=== PATIENT | female | born 1955 | race Caucasian/White ===

== ENCOUNTER 2020-08-28 16:23 | Outpatient (REF) | payer MEDICARE, OTHER, SELFPAY ==
--- NOTE | 2020-08-28 16:29 | US_ITS ---
EXAMINATION: ULTRASOUND EXTREMITY NONVASCULAR. CLINICAL INFORMATION: Left knee effusion. COMPARISON: None TECHNIQUE: Limited imaging through the posterior fossa left knee was performed. FINDINGS: There is a small left Schulte's cyst measuring 4.7 x 1.1 x 2.2 cm. No additional soft tissue masses seen. US/US extremity nonvascular IMPRESSION: Small Schulte's cyst left popliteal fossa to
== END 2020-08-28 16:24 | disposition home or self-care (01) ==
LOC: HO.US 16:23
PROVIDERS: PCP Internal Medicine; Visit Provider Internal Medicine
DX: M25.462 Effusion, left knee (principal)
CPT/HCPCS: 76882

== ENCOUNTER 2020-09-22 11:11 | Outpatient (REF) | payer MEDICARE, OTHER, SELFPAY ==
--- NOTE | 2020-09-22 11:14 | XR_ITS ---
EXAMINATION: KNEE X-RAY CLINICAL INFORMATION: Synovial cyst popliteal space COMPARISON: None TECHNIQUE: Standing AP view of both knees and lateral and sunrise view of the left knee FINDINGS: Left knee: Bone alignment is normal. No fracture or dislocation is seen. There is mild medial femoral tibial joint space narrowing. There are small osteophytes at the patellofemoral joint. There is no joint effusion. Standing AP view of the right knee demonstrates mild medial femoral tibial joint space narrowing. XR/XR knee standing BI IMPRESSION: Left knee: Mild degenerative changes. No joint effusion seen.
--- NOTE | 2020-09-22 11:14 | XR_ITS ---
EXAMINATION: KNEE X-RAY CLINICAL INFORMATION: Synovial cyst popliteal space COMPARISON: None TECHNIQUE: Standing AP view of both knees and lateral and sunrise view of the left knee FINDINGS: Left knee: Bone alignment is normal. No fracture or dislocation is seen. There is mild medial femoral tibial joint space narrowing. There are small osteophytes at the patellofemoral joint. There is no joint effusion. Standing AP view of the right knee demonstrates mild medial femoral tibial joint space narrowing. XR/XR knee LT 2V IMPRESSION: Left knee: Mild degenerative changes. No joint effusion seen.
== END 2020-09-22 11:12 | disposition home or self-care (01) ==
LOC: HO.HOSX 11:11
PROVIDERS: Visit Provider Orthopaedic Surgery
DX: M71.20 Synovial cyst of popliteal space [Baker], unspecified knee (principal)
CPT/HCPCS: 73560; 73565; 99202

== ENCOUNTER 2020-10-01 08:06 | Outpatient (REF) | payer MEDICARE, OTHER, SELFPAY ==
[2020-10-01 09:35] LABS: Alanine Aminotransferase 11 U/L (0-31); Anion Gap 12 (12-20); Aspartate Amino Transferase 17 U/L (5-31); Blood Urea Nitrogen 18 mg/dL (9-16); Calcium 9.1 mg/dL (8.4-10.2); Carbon Dioxide 30 mmol/L (22-29); Chloride 101 mmol/L (96-108); Cholesterol 193 mg/dL; Estimated Glomerular Filt Rate > 60; Glucose Fasting 84 mg/dL (60-99); HDL Cholesterol 94 mg/dL; LDL Cholesterol Calculated 92 mg/dl; Potassium 4.1 mmol/l (3.3-5.1); Sodium 139 mmol/L (135-145); Triglycerides 39 mg/dL
[2020-10-01 09:49] LABS: TSH reflex Free T4 1.98 mIU/mL (0.32-4.0); Vitamin D 25-OH Total 64.5 ng/mL (>30)
== END 2020-10-01 08:07 | disposition home or self-care (01) ==
LOC: HO.LAB 08:06
PROVIDERS: PCP Internal Medicine; Visit Provider Internal Medicine
DX: K58.0 Irritable bowel syndrome with diarrhea (principal); I10 Essential (primary) hypertension; Z78.0 Asymptomatic menopausal state; Z00.01 Encounter for general adult medical examination with abnormal findings
CPT/HCPCS: 80048; 80061; 82306; 84443; 84450; 84460

== ENCOUNTER → 2021-04-20 12:08 | Outpatient (BNVA) | payer MEDICARE, OTHER, SELFPAY | PROVIDERS: PCP Internal Medicine; Visit Provider Orthopaedic Surgery | DX: M25.561 Pain in right knee (principal) | CPT/HCPCS: 99212 ==

== ENCOUNTER 2021-04-22 10:29 | Outpatient (REF) | payer MEDICARE, OTHER, SELFPAY | END 2021-04-22 10:30 | disposition home or self-care (01) | LOC: HO.LNP 10:29 | PROVIDERS: Visit Provider Family Medicine | DX: N39.0 Urinary tract infection, site not specified (principal) | CPT/HCPCS: 87086; 87088; 87186 ==

== ENCOUNTER 2021-05-28 13:48 | Outpatient (REF) | payer MEDICARE, OTHER, SELFPAY ==
--- NOTE | ~2021-05-28 | MM_ITS ---
EXAMINATION: MM SCREENING DIGITAL BREAST TOMOSYNTHESIS, BILATERAL CLINICAL INFORMATION: Screening. Asymptomatic. The lifetime risk of breast cancer based on the Tyrer-Cuzick Model is 6%. COMPARISON: Mammography: 04/30/2020, 08/22/2017, 08/17/2016 TECHNIQUE: Digital breast tomosynthesis is performed in both the craniocaudal and mediolateral oblique views along with computer-aided detection (CAD). Synthesized 2D images are generated from the tomosynthesis. Additional left CC view is provided. FINDINGS: There are scattered areas of fibroglandular density (ACR BI-RADS breast composition Category b). There are no significant masses, abnormal calcifications, or other abnormalities. There is small dermal lesion overlying the outer left breast. Low left axillary tail node is stable. The axilla are unremarkable. MM/MM tomosynthesis screening BI IMPRESSION: There are no significant changes from prior study. ASSESSMENT: BI-RADS 2: Benign RECOMMENDATION: Routine annual mammography screening. This patient's information was entered into a reminder system with a target due date for their next mammogram.
== END 2021-05-28 13:49 | disposition home or self-care (01) ==
LOC: HO.MAMMO 13:48
PROVIDERS: PCP Internal Medicine; Visit Provider Internal Medicine
DX: Z12.31 Encounter for screening mammogram for malignant neoplasm of breast (principal)
CPT/HCPCS: 77063; 77067

== ENCOUNTER → 2021-06-19 11:26 | Outpatient (BNVA) | payer MEDICARE, OTHER, SELFPAY | PROVIDERS: PCP Internal Medicine; Visit Provider Orthopaedic Surgery | DX: M25.462 Effusion, left knee (principal) | CPT/HCPCS: 20610; 99212; J1100 ==

== ENCOUNTER 2021-09-23 07:41 | Outpatient (REF) | payer MEDICARE, OTHER, SELFPAY ==
[2021-09-23 07:52] LABS: MANUAL DIFF FLAG NO
[2021-09-23 08:16] LABS: Basophils Percent Auto 0.5 % (0-2); Eosinophils Absolute Auto 0.5 X10*3/uL (0.0-0.4); Eosinophils Percent Auto 11.2 % (0-4); Hematocrit 41.2 % (37.0-47.0); Hemoglobin 13.1 g/dl (12.0-16.0); Imm Gran Abs Auto 0.01 X10*3/uL (0.00-0.03); Imm Gran Pct Auto 0.2 % (0.0-0.4); Lymphocytes Absolute Auto 1.4 X10*3/uL (1.2-4.9); Lymphocytes Percent Auto 33.3 % (20-40); Mean Corpuscular HGB Conc 31.8 g/dl (31.0-35.0); Mean Corpuscular Hemoglobin 28.4 pg (27.0-33.0); Mean Corpuscular Volume 89.4 fL (80.0-98.0); Mean Platelet Volume 8.8 fL (9.4-12.3); Monocytes Absolute Auto 0.4 X10*3/uL (0.1-1.2); Monocytes Percent Auto 9.2 % (2-11); Neutrophils Absolute Auto 1.9 x10*3/uL (2.0-8.3); Neutrophils Percent Auto 45.6 % (45-73); Platelet Count 177 X10*3/uL (160-400); Red Blood Count 4.61 X10*6/uL (4.20-5.50); White Blood Count 4.1 X10*3/uL (4.8-10.8)
[2021-09-23 08:47] LABS: Alanine Aminotransferase 14 U/L (0-31); Anion Gap 13 (12-20); Aspartate Amino Transferase 19 U/L (5-31); Blood Urea Nitrogen 15 mg/dL (9-16); Calcium 9.5 mg/dL (8.4-10.2); Carbon Dioxide 27 mmol/L (22-29); Chloride 106 mmol/L (96-108); Cholesterol 190 mg/dL; Estimated Glomerular Filt Rate > 60; Glucose Fasting 90 mg/dL (60-99); HDL Cholesterol 77 mg/dL; LDL Cholesterol Calculated 102 mg/dl; Potassium 4.5 mmol/L (3.3-5.1); Sodium 141 mmol/L (135-145); Triglycerides 59 mg/dL
[2021-09-23 09:10] LABS: Vitamin D 25-OH Total 77.1 ng/mL (>30)
== END 2021-09-23 07:42 | disposition home or self-care (01) ==
LOC: HO.LAB 07:41
PROVIDERS: PCP Internal Medicine; Visit Provider Internal Medicine
DX: Z00.00 Encounter for general adult medical examination without abnormal findings (principal); I10 Essential (primary) hypertension; N32.81 Overactive bladder; D12.6 Benign neoplasm of colon, unspecified; J45.20 Mild intermittent asthma, uncomplicated; K58.0 Irritable bowel syndrome with diarrhea; Z78.0 Asymptomatic menopausal state
CPT/HCPCS: 36415; 80048; 80061; 82306; 84450; 84460; 85025

== ENCOUNTER → 2022-03-08 12:22 | Outpatient (BNVA) | payer MEDICARE, OTHER, SELFPAY | PROVIDERS: PCP Internal Medicine; Visit Provider Orthopaedic Surgery | DX: M17.12 Unilateral primary osteoarthritis, left knee (principal); M25.462 Effusion, left knee; M21.6X2 Other acquired deformities of left foot; M76.822 Posterior tibial tendinitis, left leg | CPT/HCPCS: 99212 ==

== ENCOUNTER 2022-05-14 10:00 | Outpatient (RCR) | payer MEDICARE, OTHER, SELFPAY ==
--- NOTE | 2022-04-07 16:11 | MHC.PT.EP ---
[facility] [place] Office [place] Office [place] Office [address] Magdalena Rosario [address] [phone] F: [phone] F: [phone] F: [phone] F: [phone] Physical Therapy Plan of Care Date of Evaluation: Date of Surgery: NA Diagnosis: L KNEE AND FOOT PAIN Assessment: Pt IS 66YO F REFERRED TO PT FROM DR GONZALEZ WITH L KNEE PAIN, PES PLANUS L ANKLE WITH HX OF R HIP PAIN (PT AT [facility] ABOUT 2 YRS AGO). Pt LIVES ACTIVE LIFESTYLE AND REPORTS KNEE PAIN IS AFFECTING ABLILITY TO PARTICIPATE IN THESE ACTIVITIES. PRESENTS TO PT WITH GOOD OVERALL TRUNK AND LE FLEXIBILITY, WITH SOME DECREASED L QUAD ENDURANCE NOTED WITH SLR, PATFEM SXS, AND PELVIC ASYMM WITH PES PLANUS L (HAS ORTHOTIC APPT ON TUESDAY). SHOULD BENEFIT FROM PT TO ADDRESS THESE ISSUES Frequency and Duration: The patient will be seen 2X/WK X 6 WKS Short Term Goals: 1. INCREASED AWARENESS KNEE CARE/POSTURE /BODY MECH 2. Pt TO WEAR ORTHOTICS/LIFT WITH RELIEF IF INDICATED Detention Goals: 1. IMPROVED LEFI (51/80 AT SOC) 2. I HEP WITH DC EX PLAN 3. DECREASED L KNEE PAIN AT LEAST 50% WITH ADLS Treatment Plan: Modalities to reduce pain, spasms and effusion. Manual therapy to restore motion and function. Therapeutic exercise to improve strength and flexibility. Neuromuscular re-education for posture and balance. Therapeutic activities to return to functional activities of daily living. Electronically signed by: RYAN BRITO PT Please sign and return to therapist. Thank you for your referral.
== END 2022-07-13 14:33 | disposition home or self-care (01) ==
LOC: HO.PTWFD 10:00
PROVIDERS: PCP Internal Medicine; Visit Provider Orthopaedic Surgery
DX: M17.12 Unilateral primary osteoarthritis, left knee (principal); M21.6X2 Other acquired deformities of left foot
CPT/HCPCS: 97110; 97140; 97162; 97530

== ENCOUNTER 2022-06-08 09:48 | Outpatient (REF) | payer MEDICARE, OTHER, SELFPAY ==
--- NOTE | ~2022-06-08 | MM_ITS ---
EXAMINATION: MM SCREENING DIGITAL BREAST TOMOSYNTHESIS, BILATERAL CLINICAL INFORMATION: Screening. Asymptomatic. The lifetime risk of breast cancer based on the Tyrer-Cuzick Model is 6%. COMPARISON: Mammography: 05/28/2021, 04/30/2020, 08/22/2017 TECHNIQUE: Digital breast tomosynthesis is performed in both the craniocaudal and mediolateral oblique views along with computer-aided detection (CAD). Synthesized 2D images are generated from the tomosynthesis. FINDINGS: There are scattered areas of fibroglandular density (ACR BI-RADS breast composition Category b). There are no significant masses, abnormal calcifications, or other abnormalities. Incidental dermal lesion is again seen overlying the mid upper outer left breast. The axilla are unremarkable. There are no significant changes from prior studies. MM/MM tomosynthesis screening BI IMPRESSION: No mammographic evidence of malignancy. ASSESSMENT: BI-RADS 2: Benign RECOMMENDATION: Routine annual mammography screening. This patient's information was entered into a reminder system with a target due date for their next mammogram.
== END 2022-06-08 09:49 | disposition home or self-care (01) ==
LOC: HO.MAMMO 09:48
PROVIDERS: PCP Internal Medicine; Visit Provider Internal Medicine
DX: Z12.31 Encounter for screening mammogram for malignant neoplasm of breast (principal)
CPT/HCPCS: 77063; 77067

== ENCOUNTER 2022-10-26 07:00 | Outpatient (REF) | payer MEDICARE, OTHER, SELFPAY ==
[2022-10-26 12:52] LABS: Cholesterol 208 mg/dL; Glucose Fasting 88 mg/dL (60-99); HDL Cholesterol 91 mg/dL; LDL Cholesterol Calculated 104 mg/dl; Triglycerides 67 mg/dL; Vitamin D 25-OH Total 68.9 ng/mL (>30)
== END 2022-10-26 07:01 | disposition home or self-care (01) ==
LOC: HO.WFDLDS 07:00
PROVIDERS: Visit Provider Internal Medicine
DX: Z13.220 Encounter for screening for lipoid disorders (principal); Z13.1 Encounter for screening for diabetes mellitus; N95.9 Unspecified menopausal and perimenopausal disorder
CPT/HCPCS: 36415; 80061; 82306; 82947

== ENCOUNTER 2023-05-12 08:00 | Outpatient (RCR) | payer MEDICARE, OTHER, SELFPAY ==
--- NOTE | 2023-04-28 10:25 | MHC.PT.EP ---
[facility] [place] Office [place] Office [place] Office [address] Magdalena Rosario [address] [phone] F: [phone] F: [phone] F: [phone] F: [phone] Physical Therapy Plan of Care Date of Evaluation: Date of Surgery: Diagnosis: Strain of muscle, fascia, tendon of left hip, initial encounter, S76.912A . referred by walk-in office Dr. Sands 04/26/23. 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 Sands) for treatment of L HS strain following incident which occurred on 04/12/23 when [place] (L LE lurched forward in effort to save herself from falling when tripping over a root while hiking). Pt report history of past PT at [facility] for L knee several devine ago which has doing well however since trauma has been noticing some mild anterior knee pain. Pt initially paused from exercise, reports limited relief with meloxicam (expressed greater relief with Aleve). Pt was educated regarding goals of recovery, findings of evaluation, and HEP program/ MHP/self massage/taping education for self-care. Pt exhibits decreased tolerance for end range lumbar trunk flexion (pain site ischial tuberosity), decreased end range knee flexion ROM/ (painful prone knee flexion with MMT), and decreased sitting tolerance. Pt is TTP over site of origin of ischial tuberosity, proximal HS musculature, and lateral HS insertion. Pt was intiated in findings of initial evaluation educated guided/educated to refrain from intensive stretching. Pt advised to perform low load gentle stretch to tolerance. Pt issued written HEP sheets to include: LBTR, piriformis (opposite knee L >R sholulder), 90/90 hamstring, avoidance end range forcing HS but gentle HS stretch within painfree limits, education to refrain from prolonged sitting, avoidance of biking at this stage as it will likely flare sx, encouragement for gentle low impact walking on flat terrrain, education to pause participation in line-dancing due to likely flare of sx. Post intial evaluation pt was trialed with gentle IASTM/STM to HS and was educated in self taping for support (application from distal>proxmial HS with three I strips. Pt was educated re: goals of application, removal, and indications for use. Pt to be seen 2x/week x 4-6 weeks. Thank you for this referral. Frequency and Duration: The patient will be seen 2x/week x 4-6 weeks Short Term Goals: 1. Reduce pain in L HS 2. Initiate HEP. 3. Express improved tolerance for symmetrical sitting position. 4. Improve HS length to resemble uninvolved side. 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 Resume functional mobility MOD I. 2. Resume walking>hiking routine. 3. Resume biking MOD I. 4. Resume yoga/exercises classes MOD I, good self care. 5. Strength L HS 5/5 LE. 6. Demonstrate functional squat with symmetry sx <2/10 L LE. 7. L LE AROM hip/knee to resemble R LE. Treatment Plan: Modalities to reduce pain, spasms and effusion. Manual therapy to restore motion and function. Therapeutic exercise to improve strength and flexibility. Neuromuscular re-education for posture and balance. Therapeutic activities to return to functional activities of daily living. Electronically signed by: Mary Alford, PT, DPT Please sign and return to therapist. Thank you for your referral.
--- NOTE | 2023-05-12 08:05 | MHC.PT.EP ---
[facility] [place] Office [place] Office [place] Office [address] Magdalena Rosario [address] [phone] F: [phone] F: [phone] F: [phone] F: [phone] Physical Therapy Plan of Care Date of Evaluation: Date of Surgery: Diagnosis: Strain of muscle, fascia, tendon of left hip, initial encounter, S76.912A . referred by walk-in office Dr. Sands 04/26/23. 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 Sands) for treatment of L HS strain following incident which occurred on 04/12/23 when [place] (L LE lurched forward in effort to save herself from falling when tripping over a root while hiking). Pt report history of past PT at [facility] for L knee several devine ago which has doing well however since trauma has been noticing some mild anterior knee pain. Pt initially paused from exercise, reports limited relief with meloxicam (expressed greater relief with Aleve). Pt was educated regarding goals of recovery, findings of evaluation, and HEP program/ MHP/self massage/taping education for self-care. Pt exhibits decreased tolerance for end range lumbar trunk flexion (pain site ischial tuberosity), decreased end range knee flexion ROM/ (painful prone knee flexion with MMT), and decreased sitting tolerance. Pt is TTP over site of origin of ischial tuberosity, proximal HS musculature, and lateral HS insertion. Pt was intiated in findings of initial evaluation educated guided/educated to refrain from intensive stretching. Pt advised to perform low load gentle stretch to tolerance. Pt issued written HEP sheets to include: LBTR, piriformis (opposite knee L >R sholulder), 90/90 hamstring, avoidance end range forcing HS but gentle HS stretch within painfree limits, education to refrain from prolonged sitting, avoidance of biking at this stage as it will likely flare sx, encouragement for gentle low impact walking on flat terrrain, education to pause participation in line-dancing due to likely flare of sx. Post intial evaluation pt was trialed with gentle IASTM/STM to HS and was educated in self taping for support (application from distal>proxmial HS with three I strips. Pt was educated re: goals of application, removal, and indications for use. Pt to be seen 2x/week x 4-6 weeks. Thank you for this referral. Frequency and Duration: The patient will be seen 2x/week x 4-6 weeks Short Term Goals: 1. Reduce pain in L HS 2. Initiate HEP. 3. Express improved tolerance for symmetrical sitting position. 4. Improve HS length to resemble uninvolved side. 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 Resume functional mobility MOD I. 2. Resume walking>hiking routine. 3. Resume biking MOD I. 4. Resume yoga/exercises classes MOD I, good self care. 5. Strength L HS 5/5 LE. 6. Demonstrate functional squat with symmetry sx <2/10 L LE. 7. L LE AROM hip/knee to resemble R LE. Treatment Plan: Modalities to reduce pain, spasms and effusion. Manual therapy to restore motion and function. Therapeutic exercise to improve strength and flexibility. Neuromuscular re-education for posture and balance. Therapeutic activities to return to functional activities of daily living. Electronically signed by: Mary Alford, PT, DPT Please sign and return to therapist. Thank you for your referral.
--- NOTE | 2023-05-12 08:16 | MHC.PT.OD ---
[facility] [place] Office [place] Office [place] Office [address] Magdalena Rosario [address] [phone] F: [phone] F: [phone] F: [phone] F: [phone] Physical Therapy Daily Note Diagnosis: Strain of muscle, fascia, tendon of left hip, initial encounter, S76.912A . referred by walk-in office Dr. Sands 04/26/23. Date of Surgery: Date of Evaluation: 04/28/23 Date of Treatment: 05/12/23 Treatments to Date: Cancellations to Date: No Shows to Date: Authorized Visits: 4 Insurance End Date: Precautions/ Contraindications:hx osteopenia Subjective: I called for a refill on the medication and the doctor told me he wanted to see me. Im going to go in today. The pain with sitting is still very intense. Pain Score and Location: Objective Flowsheet: Tests & Measures see eval Exercises Prone for MHP to L HS while prone x 5-10 minutes to increase tissue extensibility. in order to improve tissue extensibility, educated can do at home for self care with proper layering 10-15 minutes, prn several times daily with education for self care. LBTR x 4R x 20 sec hold, pelvic tilt x 4 sets 5-10 reps, piriformis stretch for L side x 4R x 20 sec hold, 90/90 HS stretch reviewed x 4R, Review of standing adductor stretch x 20 sec hold x 4R, GENTLE HS STRETCH reviewed x 4R x 20 sec hold IASTM/STM to L HS followed by taping<>support to HS musculature. ROCKTAPE four I strips applied distally>proximally L LE in effort to provide tissue support and reduce pain. Pt educated re: goals of ROCKTAPE application, indications for use, goals of ROCKTAPE application, education to remove tape slowly from skin with avoidance of ripping it off (educated alternative option of to using a wet washcloth to remove tape). Educated to remove from skin in 24-48 hours, earlier if itchy/irritating or worsening of sx. Skin intact pre application. No bruising. Skin prep pre taping completed. Modalities Continuous US 1.2 hull cm2 x 8 minutes 1 MHZ in effort to increase tissue extensibility and reduce pain, applied to proximal HS on the L LE while prone. Skin intact pre/post application. Pt expressing gentle warmth during US treatment. Assessment: 05/12/23: Pt expressing intolerance for sitting, ongoing sx site of ischial tuberosity/proximal attachment. Pt signs and sx consistent with a HS strain. Pt able to ambulate, negotiate stairs MOD I however bending over for tasks such as gardening and sitting continue to bother her. Pt reports she has ran out of meloxicam, plan is to go to walk in office after PT session this date to have update assessment. ? Benefit in imaging due to ongoing sx DOI 04/12/23.. Concern for potential avulsion fracture vs severe sprain proximal HS on L LE. Please advise. Pt encouraged to refrain from incline, hilly terrain, hiking or biking at this time. Pt encouraged to perform low impact activity within her tolerance. Pt expressing ongoing intolerance for sitting, has resumed gentle walking program on flat terrain 1- 1.5. Denies issue with stairs, but has pain with sitting. TTP ischial tuberosity consistent with HS strain PT Plan: 2x/week x 4-6 weeks Short Term Goals: 1. Reduce pain in L HS 2. Initiate HEP. 3. Express improved tolerance for symmetrical sitting position. 4. Improve HS length to resemble uninvolved side. 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 Resume functional mobility MOD I. 2. Resume walking>hiking routine. 3. Resume biking MOD I. 4. Resume yoga/exercises classes MOD I, good self care. 5. Strength L HS 5/5 LE. 6. Demonstrate functional squat with symmetry sx <2/10 L LE. 7. L LE AROM hip/knee to resemble R LE. Electronically signed by: Mary Alford, PT, DPT
== END 2023-10-18 10:52 | disposition home or self-care (01) ==
LOC: HO.PTWFD 08:00
PROVIDERS: PCP Internal Medicine; Visit Provider Internal Medicine
DX: S76.012D Strain of muscle, fascia and tendon of left hip, subsequent encounter (principal); S76.912D Strain of unspecified muscles, fascia and tendons at thigh level, left thigh, subsequent encounter
CPT/HCPCS: 97035; 97110; 97140; 97161

== ENCOUNTER 2023-05-13 09:07 | Outpatient (AMB) | payer MEDICARE, OTHER, SELFPAY ==
--- NOTE | 2023-05-13 09:21 | MHC.OFFWIV ---
Intake Vital Signs 05/13/23 09:29 BP 112/74 Blood Pressure Location Rt brachial Position Sitting Pulse 84 Pulse Source Pulse Oximeter Pulse Oximetry (%) 96 Oxygen Delivery Method Room Air Intake Visit Reasons: EST/follow up left leg and hip Intake Note: Patient here to follow up on her left leg pain. She was advised to come be seen again so that she can get a refill on meloxicam. Patient Tobacco Use Status: Never used Tobacco Allergies Sulfa (Sulfonamide Antibiotics) Allergy (Unknown, Verified 05/13/23 10:13) rash Medication List - Last Reconciled 05/13/23 by Trent Sands MD calcium carbonate 600 mg PO DAILY cetirizine (Zyrtec) 5 mg PO DAILY PRN cholecalciferol (vitamin D3) 50 mcg PO DAILY lactobacillus combination no.9 (Adult 50 Plus Probiotic) 4,000 mmu cells PO DAILY meloxicam 15 mg PO DAILY HPI EST/follow up left leg and hip HPI Details 67-year-old female presents to the office for a follow-up visit. Patient was seen for hip strain and started on anti-inflammatories and physical therapy. Continues to have discomfort in the upper and of the inner thigh on the left leg. Patient is able to walk and climb stairs. COUNTS INCLUDE 234 BEDS AT THE [facility] Medical History (Updated 04/29/23 @ 02:34 by Dai Cobb MD) Schulte's cyst of knee Chronic constipation Irritable bowel syndrome with diarrhea Menopause Mild intermittent asthma without complication Need for 23-polyvalent pneumococcal polysaccharide vaccine Osteopenia of multiple sites Overactive bladder Personal history of COVID-19 Popliteal bursitis of left knee Toenail deformity Tubular adenoma of colon Surgical History History of eye surgery Hx of colonoscopy Family History Father Lymphoma Mother Lung cancer Brother No problems noted. Maternal Grandfather No problems noted. Maternal Grandmother No problems noted. Paternal Grandfather No problems noted. Paternal Grandmother No problems noted. 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 Pain is limited to a small area at the insertion of the adductor muscles. Assessment & Plan Assessment & Plan (1) Strain of left hip and thigh: Code(s): S76.012A - Strain of muscle, fascia and tendon of left hip, initial encounter; S76.912A - Strain of unspecified muscles, fascia and tendons at thigh level, left thigh, initial encounter Plan: Symptoms have improved but not completely resolved. Meloxicam for another 2 weeks prescribed. Coding Level of Care Code Est Pt Level 3 (54292) Diagnoses Strain of left hip and thigh S76.012A; S76.912A
[2023-05-13 09:29] VITALS: BP 112/74; PULSE 84; O2SAT 96
== END 2023-05-13 10:27 | disposition home or self-care (01) ==
PROVIDERS: PCP Internal Medicine; Visit Provider Internal Medicine
DX: S76.012A Strain of muscle, fascia and tendon of left hip, initial encounter (principal); S76.912A Strain of unspecified muscles, fascia and tendons at thigh level, left thigh, initial encounter
CPT/HCPCS: 99213

== ENCOUNTER 2023-06-07 12:31 | Outpatient (AMB) | payer MEDICARE, OTHER, SELFPAY ==
--- NOTE | 2023-06-07 12:34 | A.OFFVIS_ITS ---
Intake Vital Signs 06/07/23 12:37 Height 5 ft 5 in Weight 135 lb BMI 22.5 BP 122/70 Blood Pressure Location Lt brachial Position Sitting Pulse 72 Intake Visit Reasons: Constipation Intake Note: Patient new consult for Constipation. Patient cc: constipation a dabdominal bloating on and off. Denies any other GI issues. Piler Required: No Accompanied by: Self / Same As Patient Allergies Sulfa (Sulfonamide Antibiotics) Allergy (Unknown, Verified 05/13/23 10:13) rash [facility] Medical History (Updated 04/29/23 @ 02:34 by Dai Cobb MD) Schulte's cyst of knee Chronic constipation Irritable bowel syndrome with diarrhea Menopause Mild intermittent asthma without complication Need for 23-polyvalent pneumococcal polysaccharide vaccine Osteopenia of multiple sites Overactive bladder Personal history of COVID-19 Popliteal bursitis of left knee Toenail deformity Tubular adenoma of colon Surgical History History of eye surgery Hx of colonoscopy Family History Father Lymphoma Mother Lung cancer Brother No problems noted. Maternal Grandfather No problems noted. Maternal Grandmother No problems noted. Paternal Grandfather No problems noted. Paternal Grandmother No problems noted. 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
[2023-06-07 12:37] VITALS: BP 122/70; PULSE 72; BMI 22.5
--- NOTE | 2023-06-07 12:38 | MHC.OFFVIS ---
Intake Vital Signs 06/07/23 12:37 06/07/23 12:43 Height 5 ft 5 in Weight 135 lb BMI 22.5 22.5 BP 122/70 Blood Pressure Location Lt brachial Position Sitting Pulse 72 Intake Visit Reasons: Constipation Allergies Sulfa (Sulfonamide Antibiotics) Allergy (Unknown, Verified 05/13/23 10:13) rash Medication List - Last Reconciled 06/07/23 by Ellie Vickers PA-C calcium carbonate 600 mg PO DAILY cetirizine (Zyrtec) 5 mg PO DAILY PRN cholecalciferol (vitamin D3) 50 mcg PO DAILY docusate sodium (Colace) 200 mg (2 x 100 mg) PO BEDTIME lactobacillus combination no.9 (Adult 50 Plus Probiotic) 4,000 mmu cells PO DAILY methylcellulose (laxative) (Citrucel) 500 mg PO TID HPI HPI Comments History of Present Illness Details A 67-year-old female referred with intermittent constipation- life long- bloating-cramps a couple times a month-no rectal bleeding takes no meds for it- she tried miralax- did not like the effects- tried probiotics-natural supplements. She does not typically drink much water inconsistent BM-somedays normal large BM- Discussed with Dr. 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 Kee-2 adenoma- [facility] Medical History (Updated 06/07/23 @ 13:17 by Ellie Vickers PA-C) Schulte's cyst of knee Chronic constipation Irritable bowel syndrome with diarrhea Menopause Mild intermittent asthma without complication Need for 23-polyvalent pneumococcal polysaccharide vaccine Osteopenia of multiple sites Overactive bladder Personal history of COVID-19 Popliteal bursitis of left knee Toenail deformity Tubular adenoma of colon Surgical History History of eye surgery Hx of colonoscopy Family History Father Lymphoma Mother Lung cancer Brother No problems noted. Maternal Grandfather No problems noted. Maternal Grandmother No problems noted. Paternal Grandfather No problems noted. Paternal Grandmother No problems noted. Social History Alcohol intake: never Patient Tobacco Use Status: Never used Tobacco Current occupational status: retired Current occupation: Right Handed Review of Systems Const All systems reviewed & are unremarkable except as noted in HPI and below Card Denies chest pain and Denies dyspnea Resp Denies dyspnea GI Reports abdominal pain, Reports bloating, Denies hematochezia, Reports constipation, Denies heartburn, Denies nausea and Denies vomiting Physical Exam Vital Signs: Last Vital Signs Pulse 72 06/07/23 12:37 BP 122/70 06/07/23 12:37 BMI result Body Mass Index 22.5 Const General: cooperative, healthy appearing and comfortable Orientation/consciousness: patient oriented x3 Limitations: no limitations Eyes Sclerae: sclerae normal Resp Effort & Inspection: normal respiratory effort and able to speak in complete sentences Auscultation: clear to auscultation bilaterally, no rales, no rhonchi and no wheezes Cardio Rate: regular rate Rhythm: regular rhythm Heart sounds: S1 normal heart sound present and S2 normal heart sound present Skin General skin exam: no rashes or lesions noted Neuro General: patient oriented x3 Extrem General: Yes full ROM Psych Appearance: grossly normal and well kempt Mental Status: mental status grossly normal Speech and movement: Normal speech and movement present and Clear speech present Affect: normal affect Attitude: cooperative Thought process: Normal thought process present Thought content: Normal thought content present Insight: Good insight present (Psych) Judgement: Good judgement present (Psych) Assessment & Plan Assessment & Plan (1) Chronic constipation: Comment: Discussed Linzess-declines at this time Will give trial to citrucel- HFD-grape nuts- Code(s): K59.09 - Other constipation (2) Tubular adenoma of colon: Comment: Reviewed colonoscopy from 2019 [address] Kee-2 adenomas repeat 5 year Code(s): D12.6 - Benign neoplasm of colon, unspecified Plan: 5 years adenoma- due 2024 Orders: Orders Comprehensive Met. Panel Today K58.9 - Irritable bowel syndrome without diarrhea Thyroid Stimulating Hormone Today R19.8 - Other specified symptoms and signs involving the digestive system and abdomen Complete Blood Count Auto Diff Today D12.6 - Benign neoplasm of colon, unspecified, K59.09 - Other constipation Medications: New methylcellulose (laxative) (Citrucel) 500 mg PO TID 90 tabs 5RF docusate sodium (Colace) 200 mg (2 x 100 mg) PO BEDTIME 60 caps 5RF Patient Instructions: Pleasant 67-year-old female chronic constipation, lifelong has tried OTC Discussed alternatives such as Linzess however she declines at this time After much review she is well do q.h.s. as well as Citrucel tabs 2-3 times daily maintain high-fiber diet with added fiber such as great not to her yogurt cereal etc She would like to follow-up by phone for progress, encouraged her to call with any questions or concerns. Appreciate the opportunity assist in the care the patient Coding Level of Care Code New Pt Level 3 (44587) Diagnoses Chronic constipation K59.09 Tubular adenoma of colon D12.6 Time Spent (min) 40
[2023-06-07 12:43] VITALS: BMI 22.5
== END 2023-06-07 13:31 | disposition home or self-care (01) ==
LOC: HO.HGI 12:31
PROVIDERS: PCP Internal Medicine; Visit Provider Physician Assistant
DX: K59.09 Other constipation (principal); D12.6 Benign neoplasm of colon, unspecified
CPT/HCPCS: 99203

== ENCOUNTER → 2023-06-07 12:31 | Outpatient (BNVA) | payer MEDICARE, OTHER, SELFPAY | PROVIDERS: PCP Internal Medicine; Visit Provider Physician Assistant | DX: K59.09 Other constipation (principal); D12.6 Benign neoplasm of colon, unspecified | CPT/HCPCS: 99202 ==

== ENCOUNTER 2023-07-08 13:24 | Outpatient (REF) | payer MEDICARE, OTHER, SELFPAY ==
--- NOTE | ~2023-07-08 | MM_ITS ---
EXAMINATION: BONE DENSITOMETRY CLINICAL INDICATION: Asymptomatic menopausal state. COMPARISON: This is the patient's baseline examination. TECHNIQUE: Using a [employer] DXA System (software version: 13.1) manufactured by [employer], dual-energy x-ray absorptiometry was performed of the lumbar spine and left hip. The images are of good technical quality. Summary results are attached. FINDINGS: LEFT FEMUR, NECK: BMD 0.749 g/cm2, Z-score -0.4, T-score -2.1, osteopenia. LEFT FEMUR, TOTAL: BMD 0.745 g/cm2, Z-score -0.6, T-score -2.1, osteopenia. AP SPINE L1-L4: BMD 0.769 g/cm2, Z-score -1.7, T-score -3.4, osteoporosis. IDENTIFIED RISK FACTORS: Menopause, history of fracture (adult), family history (parental hip fracture). HISTORY OF FRACTURE: Other. MEDICATIONS: Calcium supplements or multivitamin, vitamin D. MM/XR DEXA axial skeleton IMPRESSION: 1. DIAGNOSIS: Osteoporosis based on the lowest T-score value of -3.4 in the lumbar spine applying World Health Organization criteria. 2. 10-YEAR FRACTURE RISK PREDICTION, FRAX: According to the guidelines, FRAX calculation should only be performed on patients in the osteopenia bone density category. Therefore, FRAX was not performed on this patient. 3. Treatment Recommendations: NOF guidelines recommend consideration for treatment in postmenopausal women and men age 50 and older presenting with the following: -A hip or vertebral (clinical or morphometric) fracture. -T-score less than or equal to -2.5 at the femoral neck or spine after appropriate evaluation to exclude secondary causes. -Low bone mass at the hip or spine and a 10-year fracture probability by FRAX of greater than or equal to 3% for hip fracture or greater than or equal to 20% for major osteoporotic fracture based on the [place] adapted WHO algorithm. 4. Other Recommendations: All treatment decisions require clinical judgment and consideration of individual patient factors, including patient preferences, comorbidities, previous drug use, risk factors not captured in the FRAX model (e.g. frailty, falls, vitamin D deficiency, increased bone turnover, interval significant decline in bone density) and possible under or overestimation of fracture risk by FRAX. Additional medical evaluation for secondary cause of low bone mineral density may be appropriate. FUTURE SCAN RECOMMENDATION: People with diagnosed cases of osteoporosis or at high risk for fracture should have regular bone mineral density tests. For patients eligible for Medicare, routine testing is allowed once every 2 years. The testing frequency can be increased to one year for patients who have rapidly progressing disease, those who are receiving or discontinuing medical therapy to restore bone mass, or have additional risk factors.
== END 2023-07-08 13:25 | disposition home or self-care (01) ==
LOC: HO.MAMMO 13:24
PROVIDERS: Visit Provider Advanced Practice Midwife
DX: Z12.31 Encounter for screening mammogram for malignant neoplasm of breast (principal); Z13.820 Encounter for screening for osteoporosis; Z78.0 Asymptomatic menopausal state
CPT/HCPCS: 77063; 77067; 77080

== ENCOUNTER → 2023-07-08 14:00 | Outpatient (BNV) | payer MEDICARE, OTHER, SELFPAY | PROVIDERS: Visit Provider Radiology Diagnostic Radiology | DX: Z12.31 Encounter for screening mammogram for malignant neoplasm of breast (principal) | CPT/HCPCS: 77063; 77067; 77080 ==

== ENCOUNTER 2023-08-15 11:03 | Outpatient (REF) | payer MEDICARE, OTHER, SELFPAY ==
[2023-08-15 11:25] LABS: MANUAL DIFF FLAG NO
[2023-08-15 11:49] LABS: Basophils Percent Auto 0.7 % (0-2); Eosinophils Absolute Auto 0.1 X10*3/uL (0.0-0.4); Eosinophils Percent Auto 2.9 % (0-4); Hematocrit 38.2 % (37.0-47.0); Hemoglobin 12.4 g/dl (12.0-16.0); Imm Gran Abs Auto 0.01 X10*3/uL (0.00-0.03); Imm Gran Pct Auto 0.2 % (0.0-0.4); Lymphocytes Percent Auto 23.1 % (20-40); Mean Corpuscular HGB Conc 32.5 g/dl (31.0-35.0); Mean Corpuscular Hemoglobin 28.8 pg (27.0-33.0); Mean Corpuscular Volume 88.8 fL (80.0-98.0); Mean Platelet Volume 8.7 fL (9.4-12.3); Monocytes Absolute Auto 0.4 X10*3/uL (0.1-1.2); Neutrophils Absolute Auto 2.8 x10*3/uL (2.0-8.3); Neutrophils Percent Auto 64.1 % (45-73); Platelet Count 199 X10*3/uL (160-400); Red Cell Distribution Width 12.6 % (11.0-16.0); White Blood Count 4.4 X10*3/uL (4.8-10.8)
[2023-08-15 12:54] LABS: Alanine Aminotransferase 123 U/L (0-31); Albumin Level 4.2 g/dL (3.5-5.0); Alkaline Phosphatase 82 U/L (39-117); Anion Gap 11 (12-20); Aspartate Amino Transferase 94 U/L (5-31); Bilirubin Total 0.5 mg/dL (0.0-1.0); Blood Urea Nitrogen 16 mg/dL (9-16); Calcium 9.5 mg/dL (8.4-10.2); Carbon Dioxide 28 mmol/L (22-29); Chloride 102 mmol/L (96-108); Estimated Glomerular Filt Rate > 60; Glucose Random 85 mg/dL (60-115); Sodium 137 mmol/L (135-145); Total Protein 7.9 g/dL (6.5-8.0)
[2023-08-15 13:02] LABS: Thyroid Stimulating Hormone 1.01 uIU/mL (0.32-4.0)
== END 2023-08-15 11:04 | disposition home or self-care (01) ==
LOC: HO.LAB 11:03
PROVIDERS: PCP Internal Medicine; Visit Provider Physician Assistant
DX: K58.9 Irritable bowel syndrome, unspecified (principal); R19.8 Other specified symptoms and signs involving the digestive system and abdomen; D12.6 Benign neoplasm of colon, unspecified; K59.09 Other constipation
CPT/HCPCS: 36415; 80053; 84443; 85025

== ENCOUNTER 2023-08-18 13:44 | Outpatient (AMB) | payer MEDICARE, OTHER, SELFPAY ==
[2023-08-18 13:47] VITALS: BP 96/62; PULSE 81; O2SAT 96; BMI 23.5
--- NOTE | 2023-08-18 13:47 | A.OFFPC_ITS ---
Vital Signs 08/18/23 13:47 Height 5 ft 5 in Weight 141 lb BMI 23.5 BP 96/62 Blood Pressure Location Lt brachial Position Sitting Pulse 81 Pulse Source Pulse Oximeter Pulse Oximetry (%) 96 Oxygen Delivery Method Room Air Intake Visit Reasons: Osteoporosis Intake Note: pt is here to go over the results from her bone density Allergies Sulfa (Sulfonamide Antibiotics) Allergy (Unknown, Verified 08/21/23 23:59) rash Medication List - Last Reconciled 08/21/23 by Dai Cobb MD alendronate 70 mg PO QWEEK 30 days calcium carbonate 600 mg PO DAILY cetirizine (Zyrtec) 5 mg PO DAILY PRN cholecalciferol (vitamin D3) 50 mcg PO DAILY docusate sodium (Colace) 200 mg (2 x 100 mg) PO BEDTIME lactobacillus combination no.9 (Adult 50 Plus Probiotic) 4,000 mmu cells PO DAILY Tobacco use date assessed: 08/18/23 Fall risk assessment: 1 Fall in past year Last assessed Fall Risk: 08/18/23 Dental Screening Dental Screen Date: 08/18/23 Did you have a dental visit in the last 12 months?: Yes Did you have a dental problem in the last 6 months where you did not have access to dental care?: No Was dental information given to patient?: Patient has dentist HPI Osteoporosis HPI Details 68-year-old lady here today for follow-u p on results of her latest bone density scan. It showed Osteoporosis based on the lowest T-score value of -3.4 in the lumbar spine. No history of fracture. Stays active, exercises regular and takes calcium and vitamin-D supplements [facility] Medical History (Updated 08/18/23 @ 14:40 by Dai Cobb MD) Osteoporosis of lumbar spine Chronic constipation Osteopenia of multiple sites Personal history of COVID-19 Need for 23-polyvalent pneumococcal polysaccharide vaccine Toenail deformity Menopause Tubular adenoma of colon Irritable bowel syndrome with diarrhea Mild intermittent asthma without complication Overactive bladder Schulte's cyst of knee Popliteal bursitis of left knee Surgical History Hx of colonoscopy History of eye surgery Family History Father Lymphoma Mother Lung cancer Brother No problems noted. Maternal Grandfather No problems noted. Maternal Grandmother No problems noted. Paternal Grandfather No problems noted. Paternal Grandmother No problems noted. Social History Housing: House Alcohol intake: never Patient Tobacco Use Status: Never used Tobacco e-Cigarette/Vaping Use: Never Used Current occupational status: retired Current occupation: Right Handed Cognitive needs: No Hearing needs: No Vision needs: No Review of Systems Const All systems reviewed & are unremarkable except as noted in HPI and below Physical exam (Primary Care) Vital Signs: Last Vital Signs Pulse 81 08/18/23 13:47 BP 96/62 08/18/23 13:47 Pulse Ox 96 08/18/23 13:47 Oxygen Delivery Method Room Air 08/18/23 13:47 BMI result Body Mass Index 23.5 Tobacco/Smoking Status: Tobacco use Status Tobacco use date assessed 08/18/23 08/18/23 13:52 Patient Tobacco Use Status Never used Tobacco 08/18/23 13:52 e-Cigarette/Vaping Use Never Used 08/18/23 13:52 Const General: no acute distress and alert HENMT Ears: external ears normal General nose exam: Normal external nose present and No nasal discharge present Mouth: Normal oral and palatal mucosa present, oropharynx normal and moist mucous membranes Eyes General: appearance normal, both eyes and all related structures Neck Neck: Yes full ROM, Yes no lymphadenopathy and Yes supple Resp Effort & Inspection: normal respiratory effort and able to speak in complete sentences Auscultation: clear to auscultation bilaterally Cardio Rate: regular rate Rhythm: regular rhythm Heart sounds: S1 normal heart sound present and S2 normal heart sound present GI Palpation (GI): Soft to palpation, nontender and no masses Auscultation: normal bowel sounds Back/Spine/Pelvis Back: No back tenderness Extrem General: Yes full ROM, Yes no joint enlargement, Yes no clubbing, cyanosis or edema and Yes no calf tenderness Assessment and Plan Assessment & Plan (1) Osteoporosis of lumbar spine: Code(s): M81.0 - Age-related osteoporosis without current pathological fracture Plan: Will start on alendronate 70 mg per tablet. Pt advised to start taking medication upon waking up in am, take medication 1 hour before first food/drink/med. and remain uprigh tfor 1 hour after taking medication.. Discussed potential side effects with pt, including but not limited to, dysphagia, esophagitis and gastritis. Pt advised to stop medication and call o ffice if developes any adverse side effects. Ca an continue calcium and vitamin- D supplements. Repeat bone density scan in a year after starting alendronate (2) Screening for lipid disorders: Code(s): Z13.220 - Encounter for screening for lipoid disorders Plan: Fasting lipid panel ordered Orders: Orders Lipid Panel 08/18/23 M81.0 - Age-related osteoporosis without current path ological fracture Liver Panel 08/18/23 M81.0 - Age-related osteoporosis without current pathological fracture Vitamin D 25-OH Total 08/18/23 M81.0 - Age-related osteoporosis without current pathological fracture Medications: New alendronate 70 mg PO QWEEK 30 days 5 tabs 5RF Coding Level of Care Code Est Pt Level 3 (78299) Diagnoses Osteoporosis of lumbar spine M81.0 Screening for lipid disorders Z13.220
== END 2023-08-18 15:32 | disposition home or self-care (01) ==
PROVIDERS: PCP Internal Medicine; Visit Provider Internal Medicine
DX: M81.0 Age-related osteoporosis without current pathological fracture (principal); Z13.220 Encounter for screening for lipoid disorders
CPT/HCPCS: 99213

== ENCOUNTER 2023-08-22 07:40 | Outpatient (REF) | payer MEDICARE, OTHER, SELFPAY ==
[2023-08-22 12:02] LABS: Alanine Aminotransferase 569 U/L (0-31); Albumin Level 4.3 g/dL (3.5-5.0); Alkaline Phosphatase 100 U/L (39-117); Aspartate Amino Transferase 308 U/L (5-31); Bilirubin Direct 0.3 mg/dL (0.0-0.5); Bilirubin Total 0.7 mg/dL (0.0-1.0); Cholesterol 185 mg/dL (<200); HDL Cholesterol 88 mg/dL (>40); LDL Cholesterol Calculated 84 mg/dL (<100); Triglycerides 66 mg/dL (<150)
[2023-08-22 12:22] LABS: Vitamin D 25-OH Total 72.5 ng/mL (>30)
== END 2023-08-22 07:41 | disposition home or self-care (01) ==
LOC: HO.WFDLDS 07:40
PROVIDERS: Visit Provider Internal Medicine
DX: M81.0 Age-related osteoporosis without current pathological fracture (principal)
CPT/HCPCS: 36415; 80061; 80076; 82306

== ENCOUNTER 2023-08-23 14:22 | Outpatient (REF) | payer MEDICARE, OTHER, SELFPAY ==
[2023-08-24 10:18] LABS: HBS Num1 0.31 mIU/mL (0-7.99); HBc Num1 0.09 S/CO (0.00-0.79); HBsAGNum1 0.31 S/CO (0.00-0.99); Hepatitis A Antibody IgM 0.23 Index (0-0.79); Hepatitis B Core Antibody Nonreactive (Nonreactive); Hepatitis B Surface Antigen Negative (Negative); ~HepC Num1 0.28 S/CO (0.00-0.79); ~Hepatitis A Antibody IgM Nonreactive (Nonreactive); ~Hepatitis B Surface Antibody NONREACTIVE (Nonreactive); ~Hepatitis C Antibody Nonreactive (Nonreactive)
== END 2023-08-23 14:23 | disposition home or self-care (01) ==
LOC: HO.LAB 14:22
PROVIDERS: PCP Internal Medicine; Visit Provider Internal Medicine
DX: R74.01 Elevation of levels of liver transaminase levels (principal)
CPT/HCPCS: 36415; 86704; 86706; 86709; 86803; 87340

== ENCOUNTER 2023-08-25 12:53 | Outpatient (REF) | payer MEDICARE, OTHER, SELFPAY ==
[2023-08-25 15:10] LABS: Alanine Aminotransferase 476 U/L (0-31); Albumin Level 4.3 g/dL (3.5-5.0); Alkaline Phosphatase 96 U/L (39-117); Aspartate Amino Transferase 228 U/L (5-31); Bilirubin Direct 0.2 mg/dL (0.0-0.5); Bilirubin Total 0.4 mg/dL (0.0-1.0); Total Protein 7.9 g/dL (6.5-8.0)
[2023-08-26 12:54] LABS: Transglutaminase IgA <1.0 U/mL
[2023-08-26 16:28] LABS: Alpha 1 Anti-trypsin 167 mg/dL (83-199)
[2023-08-30 09:33] LABS: Mitochondrial Antibodies NEGATIVE (NEGATIVE)
[2023-08-30 12:18] LABS: Endomysial IgA Antibody Negative (Negative)
[2023-08-30 22:59] LABS: Smooth Muscle Antibody <20 U (<20)
[2023-08-31 13:18] LABS: Aldolase 13.2 U/L (<=8.1)
[2023-09-04 13:25] LABS: Soluble Liver Ag Autoantibody <20.1 U (0.0-20.0)
== END 2023-08-25 12:54 | disposition home or self-care (01) ==
LOC: HO.LAB 12:53
PROVIDERS: PCP Internal Medicine; Visit Provider Physician Assistant
DX: R10.11 Right upper quadrant pain (principal); R74.01 Elevation of levels of liver transaminase levels; R74.8 Abnormal levels of other serum enzymes
CPT/HCPCS: 36415; 80076; 82085; 82103; 82550; 83520; 86015; 86231; 86364; 86381

== ENCOUNTER 2023-08-30 07:26 | Outpatient (REF) | payer MEDICARE, OTHER, SELFPAY ==
--- NOTE | ~2023-08-30 | US_ITS ---
EXAMINATION: US ABDOMEN COMPLETE CLINICAL INFORMATION: Elevated liver function tests. COMPARISON: None available. TECHNIQUE: Real-time imaging of the abdominal viscera. Limited visualization due to bowel gas. FINDINGS: PANCREAS: Limited visualization of pancreatic tail and head. Imaged portion of pancreatic body is unremarkable. ABDOMINAL AORTA: Nonaneurysmal. INFERIOR VENA CAVA: Visualized portions are normal. LIVER: Increased hepatic parenchymal heterogeneity and echogenicity which could be associated with hepatic steatosis or hepatocellular disease and substantially limits visualization. GALLBLADDER: No gallstones. No gallbladder wall thickening. COMMON BILE DUCT: Normal in caliber measuring 0.2 cm in diameter. RIGHT KIDNEY: No renal calculi. Renal cortical thickness is normal. Limited visualization. The kidney measures 11.3 cm in maximum dimension. LEFT KIDNEY: Mild fullness left renal pelvis. No renal calculi. Renal cortical thickness is normal. Limited visualization. The kidney measures 9.5 cm in maximum dimension. SPLEEN: Normal. The spleen measures 9.7 cm in maximum dimension. FREE FLUID: None. US/US abdomen complete IMPRESSION: 1. Increased hepatic parenchymal heterogeneity and echogenicity which could be associated with hepatic steatosis or hepatocellular disease and substantially limits visualization. 2. Mild fullness left renal pelvis. No renal calculi.
[2023-08-30 09:46] LABS: Alanine Aminotransferase 550 U/L (0-31); Albumin Level 4.4 g/dL (3.5-5.0); Alkaline Phosphatase 105 U/L (39-117); Aspartate Amino Transferase 291 U/L (5-31); Bilirubin Direct 0.2 mg/dL (0.0-0.5); Bilirubin Total 0.6 mg/dL (0.0-1.0); Total Protein 8.3 g/dL (6.5-8.0)
== END 2023-08-30 07:27 | disposition home or self-care (01) ==
LOC: HO.HMGCX 07:26
PROVIDERS: Physician Assistant; PCP Internal Medicine; Visit Provider Internal Medicine
DX: R74.01 Elevation of levels of liver transaminase levels (principal)
CPT/HCPCS: 36415; 76700; 80076; 99212

== ENCOUNTER 2023-08-30 07:29 | Outpatient (AMB) | payer MEDICARE, OTHER, SELFPAY ==
--- NOTE | 2023-08-30 07:38 | MHC.OFFVIS ---
Intake Vital Signs 08/30/23 07:39 Height 5 ft 5 in Weight 134 lb BMI 22.3 BP 79/58 L Blood Pressure Location Lt brachial Position Sitting Pulse 80 Intake Visit Reasons: elevated liver levels Intake Note: Patient follow up for results of elevated liver level Patient cc: constipation and denies any other GI issues. 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 Accompanied by: Self / Same As Patient Allergies Sulfa (Sulfonamide Antibiotics) Allergy (Unknown, Verified 08/30/23 07:37) rash Medication List - Last Reconciled 08/30/23 by Ellie Vickers PA-C alendronate 70 mg PO QWEEK 30 days calcium carbonate 600 mg PO DAILY cetirizine (Zyrtec) 5 mg PO DAILY PRN cholecalciferol (vitamin D3) 50 mcg PO DAILY docusate sodium (Colace) 200 mg (2 x 100 mg) PO BEDTIME lactobacillus combination no.9 (Adult 50 Plus Probiotic) 4,000 mmu cells PO DAILY HPI HPI Comments History of Present Illness Details A 68 y/o female f/u with significant elevated liver enzymes-she has no sx- other than lifelong constipation- there have been no changes-no jaundice or abdominal pain we repeated enzymes she f/u to discuss U/S scheduled for today- She had no new medications- she tells me she began taking XIMENA digestive supplements- an herbal supplements- for about 2 months- she also started jordanian Sarah- she stopped both after we spoke on However throughout the visit she then admitted that she has been taking some type of herbal teas. No nausea, vomiting, hematemesis, hematochezia, abdominal pain, fever, chills or jaundice [facility] Medical History Elevated liver transaminase level Osteoporosis of lumbar spine Chronic constipation Osteopenia of multiple sites Personal history of COVID-19 Need for 23-polyvalent pneumococcal polysaccharide vaccine Toenail deformity Menopause Tubular adenoma of colon Irritable bowel syndrome with diarrhea Mild intermittent asthma without complication Overactive bladder Schulte's cyst of knee Popliteal bursitis of left knee Surgical History Hx of colonoscopy History of eye surgery Family History Father Lymphoma Mother Lung cancer Brother No problems noted. Maternal Grandfather No problems noted. Maternal Grandmother No problems noted. Paternal Grandfather No problems noted. Paternal Grandmother No problems noted. Social History Housing: House Alcohol intake: never Patient Tobacco Use Status: Never used Tobacco e-Cigarette/Vaping Use: Never Used Current occupational status: retired Current occupation: Right Handed Cognitive needs: No Hearing needs: No Vision needs: No Review of Systems Const All systems reviewed & are unremarkable except as noted in HPI and below Denies body aches, Denies chills, Denies fatigue, Denies fever(s), Denies headache(s) and Denies malaise ENT Denies dizziness and Denies headache(s) Card Denies chest pain and Denies dyspnea Resp Denies dyspnea GI Denies abdominal pain, Denies change in bowel habits, Denies nausea and Denies vomiting Musc Denies no additional complaints, Denies myalgias and Denies arthralgias Neuro Denies dizziness and Denies headache(s) Psych Denies anxiety and Denies depression Endo Denies fatigue Physical Exam Vital Signs: Last Vital Signs Pulse 80 08/30/23 07:39 BP 79/58 L 08/30/23 07:39 BMI result Body Mass Index 22.3 Const General: comfortable and no acute distress Nutritional Appearance: thin Orientation/consciousness: patient oriented x3 Limitations: no limitations Neuro General: patient oriented x3 Results Reviewed Results Reviewed: Reviewed labs ROS-all negative Assessment & Plan Assessment & Plan (1) Elevated liver transaminase level: Comment: She had discontinued all herbs initially -again reinforced importance of discontinuing all herbs abstaining from alcohol as well as Tylenol nsaids Code(s): R74.01 - Elevation of levels of liver transaminase levels Plan: Repeat liver. await ultrasound Plan abstain from etoh, herbs, no tylenol or IBU- Reenforced NO herbal supplements Orders: Orders Liver Panel 08/30/23 R74.01 - Elevation of levels of liver transaminase levels Patient Instructions: U/S today-no results available by ended wilfredo liver enzymes NO HERBS,ETOH, Tylenol or NSAIDS Discussed with Dr. Ventura- Family concerning symptoms, jaundice, abdominal pain ETC go to ED No major barriers to understanding were identified Coding Level of Care Code Est Pt Level 4 (64640) Diagnoses Elevated liver transaminase level R74.01 Time Spent (min) 35
[2023-08-30 07:39] VITALS: BP 79/58; PULSE 80; BMI 22.3
== END 2023-08-30 08:44 | disposition home or self-care (01) ==
PROVIDERS: PCP Internal Medicine; Visit Provider Physician Assistant
DX: R74.01 Elevation of levels of liver transaminase levels (principal)
CPT/HCPCS: 99214

== ENCOUNTER 2023-09-16 09:58 | Outpatient (REF) | payer MEDICARE, OTHER, SELFPAY ==
[2023-09-16 11:24] LABS: Basophils Percent Auto 0.9 % (0-2); Eosinophils Absolute Auto 0.1 X10*3/uL (0.0-0.4); Eosinophils Percent Auto 3.9 % (0-4); Hematocrit 37.6 % (37.0-47.0); Hemoglobin 12.3 g/dl (12.0-16.0); Imm Gran Abs Auto 0.01 X10*3/uL (0.00-0.03); Imm Gran Pct Auto 0.3 % (0.0-0.4); Lymphocytes Absolute Auto 0.9 X10*3/uL (1.2-4.9); Lymphocytes Percent Auto 26.9 % (20-40); MANUAL DIFF FLAG NO; Mean Corpuscular HGB Conc 32.7 g/dl (31.0-35.0); Mean Corpuscular Hemoglobin 28.7 pg (27.0-33.0); Mean Corpuscular Volume 87.6 fL (80.0-98.0); Monocytes Absolute Auto 0.4 X10*3/uL (0.1-1.2); Monocytes Percent Auto 10.9 % (2-11); Neutrophils Absolute Auto 1.9 x10*3/uL (2.0-8.3); Neutrophils Percent Auto 57.1 % (45-73); Platelet Count 189 X10*3/uL (160-400); Red Blood Count 4.29 X10*6/uL (4.20-5.50); Red Cell Distribution Width 13.2 % (11.0-16.0); White Blood Count 3.3 X10*3/uL (4.8-10.8)
[2023-09-16 11:54] LABS: Alanine Aminotransferase 1545 U/L (0-31); Alkaline Phosphatase 173 U/L (39-117); Anion Gap 11 (12-20); Aspartate Amino Transferase 831 U/L (5-31); Bilirubin Total 0.8 mg/dL (0.0-1.0); Blood Urea Nitrogen 15 mg/dL (9-16); Calcium 9.3 mg/dL (8.4-10.2); Carbon Dioxide 30 mmol/L (22-29); Chloride 102 mmol/L (96-108); Estimated Glomerular Filt Rate > 60; Glucose Random 94 mg/dL (60-115); Potassium 3.9 mmol/L (3.3-5.1); Sodium 139 mmol/L (135-145); Total Protein 7.7 g/dL (6.5-8.0)
== END 2023-09-16 09:59 | disposition home or self-care (01) ==
LOC: HO.WFDLDS 09:58
PROVIDERS: Visit Provider Physician Assistant
DX: R74.01 Elevation of levels of liver transaminase levels (principal); K76.0 Fatty (change of) liver, not elsewhere classified
CPT/HCPCS: 36415; 80053; 85025

== ENCOUNTER 2023-09-28 09:00 | Day surgery (SDC) | payer MEDICARE, OTHER, SELFPAY ==
--- NOTE | ~2023-09-28 | US_ITS ---
Ultrasound-guided liver biopsy History: Elevated LFTs Procedure: Ultrasound-guided liver biopsy Risks and benefits and possible complications were discussed with the patient and consent form was signed. The abdomen was prepped and draped in usual sterile fashion. 1% lidocaine was used for anesthesia. A 17-gauge coaxial needle was inserted through the skin and soft tissues and into the right lobe of the liver. A total of 3, 18-gauge cores were performed. Permanent ultrasound images were archived. 2 Gelfoam torpedoes were inserted through the coaxial and administered into the biopsy tract and at the level of the capsule. The needle was then removed. The specimens were placed in formalin and sent to pathology. The patient tolerated the procedure well. The procedure was performed under moderate sedation with a dedicated nurse for monitoring of vital signs. The patient received a total of 0.5 Versed, and 25 Fentanyl. Moderate sedation time: 17 min This procedure was performed by Mello Rios PA-C, and directly supervised by Dr. Cunningham. US/US biopsy liver Impression: Ultrasound-guided liver biopsy
[2023-09-28 09:23] VITALS: BMI 21.8
[2023-09-28 10:09] LABS: INTERNATIONAL NORM RATIO 0.9 (0.9-1.1); Prothrombin Time 11.1 SEC (11.1-13.3)
[2023-09-28 10:12] LABS: Partial Thromboplastin Time 33.8 SEC (26.0-36.4)
[2023-09-28] MEDS: Lidocaine HCl 1 % MPF 5 ML VIAL 10 ML SUBCUT (11:22)
[2023-09-28 11:25] VITALS: BP 108/63; PULSE 73; RESP 17; TEMP 36.1; O2SAT 96
[2023-09-28 11:40] VITALS: BP 100/64; PULSE 73; RESP 18; O2SAT 98
[2023-09-28 11:55] VITALS: BP 99/57; PULSE 67; RESP 18; TEMP 36.4; O2SAT 96
[2023-09-28 12:10] VITALS: BP 100/64; PULSE 74; RESP 18; O2SAT 97
[2023-09-28 13:00] VITALS: BP 104/67; PULSE 69; RESP 17; TEMP 36.3; O2SAT 98
== END 2023-09-28 13:08 | disposition home or self-care (01) ==
PROVIDERS: Physician Assistant Surgical; PCP Internal Medicine; Visit Provider Student in an Organized Health Care Education/Training Program
DX: R74.01 Elevation of levels of liver transaminase levels (principal); K76.0 Fatty (change of) liver, not elsewhere classified; K59.09 Other constipation; J45.20 Mild intermittent asthma, uncomplicated; M81.0 Age-related osteoporosis without current pathological fracture; Z86.16 Personal history of COVID-19; Z88.2 Allergy status to sulfonamides
CPT/HCPCS: 36415; 47000; 76942; 85610; 85730; 86850; 86900; 86901; 88307; 88313; 99152; 99153; J2250; J2310; J3010

== ENCOUNTER → 2023-09-28 10:18 | Outpatient (BNV) | payer MEDICARE, OTHER, SELFPAY | PROVIDERS: PCP Internal Medicine; Visit Provider Student in an Organized Health Care Education/Training Program | DX: K76.0 Fatty (change of) liver, not elsewhere classified (principal); R74.01 Elevation of levels of liver transaminase levels | CPT/HCPCS: 47000; 76942 ==

== ENCOUNTER 2023-10-05 10:52 | Outpatient (REF) | payer MEDICARE, OTHER, SELFPAY ==
[2023-10-05 14:21] LABS: INTERNATIONAL NORM RATIO 0.9 (0.9-1.1); Prothrombin Time 11.4 SEC (11.1-13.3)
[2023-10-05 14:49] LABS: Alanine Aminotransferase 221 U/L (0-31); Alkaline Phosphatase 111 U/L (39-117); Aspartate Amino Transferase 107 U/L (5-31); Bilirubin Direct 0.3 mg/dL (0.0-0.5); Bilirubin Total 0.6 mg/dL (0.0-1.0); Total Protein 7.8 g/dL (6.5-8.0)
[2023-10-11 20:14] LABS: Hepatitis E Virus HEV IgG NOT DETECTED; Hepatitis E Virus HEV IgM NOT DETECTED
== END 2023-10-05 10:53 | disposition home or self-care (01) ==
LOC: HO.WFDLDS 10:52
PROVIDERS: Visit Provider Physician Assistant
DX: R74.01 Elevation of levels of liver transaminase levels (principal); R10.11 Right upper quadrant pain
CPT/HCPCS: 36415; 80076; 85610; 86790

== ENCOUNTER 2023-10-11 12:47 | Outpatient (REF) | payer MEDICARE, OTHER, SELFPAY ==
[2023-10-11 13:41] LABS: Alanine Aminotransferase 177 U/L (0-31); Albumin Level 4.1 g/dL (3.5-5.0); Alkaline Phosphatase 106 U/L (39-117); Aspartate Amino Transferase 93 U/L (5-31); Bilirubin Direct 0.2 mg/dL (0.0-0.5); Bilirubin Total 0.6 mg/dL (0.0-1.0)
== END 2023-10-11 12:48 | disposition home or self-care (01) ==
LOC: HO.LAB 12:47
PROVIDERS: PCP Internal Medicine; Visit Provider Physician Assistant
DX: R10.11 Right upper quadrant pain (principal); R74.01 Elevation of levels of liver transaminase levels
CPT/HCPCS: 36415; 80076

== ENCOUNTER 2023-10-26 10:26 | Outpatient (REF) | payer MEDICARE, OTHER, SELFPAY ==
[2023-10-26 11:32] LABS: MANUAL DIFF FLAG NO
[2023-10-26 11:46] LABS: Basophils Percent Auto 0.8 % (0-2); Eosinophils Absolute Auto 0.1 X10*3/uL (0.0-0.4); Eosinophils Percent Auto 2.7 % (0-4); Hematocrit 38.5 % (37.0-47.0); Hemoglobin 12.8 g/dl (12.0-16.0); Imm Gran Abs Auto 0.01 X10*3/uL (0.00-0.03); Imm Gran Pct Auto 0.3 % (0.0-0.4); Lymphocytes Absolute Auto 1.2 X10*3/uL (1.2-4.9); Mean Corpuscular HGB Conc 33.2 g/dl (31.0-35.0); Mean Corpuscular Hemoglobin 29.2 pg (27.0-33.0); Mean Corpuscular Volume 87.9 fL (80.0-98.0); Mean Platelet Volume 9.4 fL (9.4-12.3); Monocytes Absolute Auto 0.3 X10*3/uL (0.1-1.2); Monocytes Percent Auto 7.3 % (2-11); Neutrophils Absolute Auto 2.2 x10*3/uL (2.0-8.3); Neutrophils Percent Auto 57.9 % (45-73); Platelet Count 158 X10*3/uL (160-400); Red Blood Count 4.38 X10*6/uL (4.20-5.50); White Blood Count 3.7 X10*3/uL (4.8-10.8)
[2023-10-26 15:01] LABS: Alanine Aminotransferase 79 U/L (0-31); Albumin Level 3.9 g/dL (3.5-5.0); Alkaline Phosphatase 96 U/L (39-117); Anion Gap 12 (12-20); Aspartate Amino Transferase 46 U/L (5-31); Bilirubin Total 0.5 mg/dL (0.0-1.0); Blood Urea Nitrogen 12 mg/dL (9-16); Calcium 9.5 mg/dL (8.4-10.2); Carbon Dioxide 26 mmol/L (22-29); Chloride 104 mmol/L (96-108); Estimated Glomerular Filt Rate > 60; Glucose Random 132 mg/dL (60-115); Potassium 3.8 mmol/L (3.3-5.1); Sodium 138 mmol/L (135-145); Total Protein 7.8 g/dL (6.5-8.0)
== END 2023-10-26 10:27 | disposition home or self-care (01) ==
LOC: HO.WFDLDS 10:26
PROVIDERS: Visit Provider Physician Assistant
DX: K76.0 Fatty (change of) liver, not elsewhere classified (principal); R74.01 Elevation of levels of liver transaminase levels
CPT/HCPCS: 36415; 80053; 85025

== ENCOUNTER 2023-11-07 07:33 | Outpatient (REF) | payer MEDICARE, OTHER, SELFPAY ==
[2023-11-07 11:57] LABS: Alanine Aminotransferase 63 U/L (0-31); Albumin Level 4.1 g/dL (3.5-5.0); Alkaline Phosphatase 87 U/L (39-117); Anion Gap 12 (12-20); Aspartate Amino Transferase 45 U/L (5-31); Bilirubin Total 0.6 mg/dL (0.0-1.0); Blood Urea Nitrogen 16 mg/dL (9-16); Calcium 9.5 mg/dL (8.4-10.2); Carbon Dioxide 28 mmol/L (22-29); Chloride 103 mmol/L (96-108); Estimated Glomerular Filt Rate > 60; Glucose Random 96 mg/dL (60-115); Potassium 3.9 mmol/L (3.3-5.1); Sodium 139 mmol/L (135-145); Total Protein 7.9 g/dL (6.5-8.0)
== END 2023-11-07 07:34 | disposition home or self-care (01) ==
LOC: HO.WFDLDS 07:33
PROVIDERS: Visit Provider Physician Assistant
DX: R74.01 Elevation of levels of liver transaminase levels (principal)
CPT/HCPCS: 36415; 80053

== ENCOUNTER 2023-11-08 16:13 | Outpatient (AMB) | payer MEDICARE, OTHER, SELFPAY ==
--- NOTE | 2023-11-08 16:04 | A.OFFPC_ITS ---
Intake Visit Reasons: android , restart fosmax Intake Note: Pt wants to discuss to restarting fosamax Allergies Sulfa (Sulfonamide Antibiotics) Allergy (Unknown, Verified 11/08/23 16:47) rash Medication List - Last Reconciled 11/08/23 by Dai Cobb MD calcium carbonate 600 mg PO DAILY cetirizine (Zyrtec) 5 mg PO DAILY PRN cholecalciferol (vitamin D3) 50 mcg PO DAILY docusate sodium (Colace) 200 mg (2 x 100 mg) PO BEDTIME lactobacillus combination no.9 (Adult 50 Plus Probiotic) 4,000 mmu cells PO DAILY Tobacco use date assessed: 11/08/23 Fall risk assessment: 1 Fall in past year Last assessed Fall Risk: 11/08/23 Dental Screening Dental Screen Date: 11/08/23 Did you have a dental visit in the last 12 months?: Yes Did you have a dental problem in the last 6 months where you did not have access to dental care?: No Was dental information given to patient?: Patient has dentist HPI restart fosmax HPI Details Tele health visit made with 68-year-old lady with osteoporosis, recently started on Fosamax but was discontinued due to elevated liver enzymes, here today to see whether to start taking Fosamax again. 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 The presence of eosinophils raises the possibility of a drug reaction or toxin exposure. Patient had negative viral and autoimmune serologies. She also thinks that there is possibility that liver enzymes might be elevated due to recent vaccination with COVID booster on 08/02/2023, combined with taking alendronate 2 weeks after . It was also noted that patient has been taking herbal supplements during this time, which she has since discontinued. She however denies any abdominal pain, no jaundice, no fatigue issues, no fever, no nausea or vomiting, no history of fracture reported. [facility] Medical History Elevated liver transaminase level Osteoporosis of lumbar spine Chronic constipation Osteopenia of multiple sites Personal history of COVID-19 Need for 23-polyvalent pneumococcal polysaccharide vaccine Toenail deformity Menopause Tubular adenoma of colon Irritable bowel syndrome with diarrhea Mild intermittent asthma without complication Overactive bladder Schulte's cyst of knee Popliteal bursitis of left knee Surgical History Hx of colonoscopy History of eye surgery Family History Father Lymphoma Mother Lung cancer Brother No problems noted. Maternal Grandfather No problems noted. Maternal Grandmother No problems noted. Paternal Grandfather No problems noted. Paternal Grandmother No problems noted. Social History Housing: House Alcohol intake: never Patient Tobacco Use Status: Never used Tobacco e-Cigarette/Vaping Use: Never Used Current occupational status: retired Current occupation: Right Handed Cognitive needs: No Hearing needs: No Vision needs: No Questionnaire PHQ-9 Over the last 2 weeks, how often have you been bothered by any of the following problems? 1. Little interest or pleasure in doing things: not at all 2. Feeling down, depressed, or hopeless: not at all 3. Trouble falling or staying asleep, or sleeping too much: not at all 4. Feeling tired or having little energy: not at all 5. Poor appetite or overeating: not at all 6. Feeling bad about yourself - or that you are a failure or have let yourself or your family down: not at all 7. Trouble concentrating on things, such as reading the newspaper or watching television: not at all 8. Moving or speaking so slowly that other people could have noticed. Or the opposite - being so fidgety or restless that you have been moving around a lot more than usual: not at all 9. Thoughts that you would be better off or of hurting yourself in some way: not at all Total score: 0 Depression Screening Interpretation: Negative Depression Screening Done: Yes 36416 - PHQ-9 Billing: Yes Source: Developed by Drs. Mendel Pardo, Lorenza Mejia, Luis Enrique Kendrick and colleagues, with an educational dahlia from [employer] AUDIT C Alcohol Use Questionnaire (AUDIT-C) 1. How often do you have a drink containing alcohol?: 2-3 times a week 2. How many drinks containing alcohol do you have on a typical day when you are drinking?: 1 or 2 3. How often do you have six or more drinks on one occasion?: Never Total Score: 3 HILARIO-7 AMB Questionnaire HILARIO-7 Date HILARIO - 7 assessed: 11/08/23 Feeling nervous, anxious, or on edge: 1 = Several days Not being able to stop or control worryin = Several days Worrying too much about different things: 0 = Not at all Trouble relaxin = Not at all Being so restless that it is hard to sit still: 0 = Not at all Becoming easily annoyed or irritable: 0 = Not at all Feeling afraid as if something awful might happen: 1 = Several days Total HILARIO-7 score (0-4 normal; 5-9 mild; 10-14 moderate; 15-21 severe): 3 Source: Developed by Drs. Mendel Pardo, Lorenza Mejia, Luis Enrique Kendrick and colleagues, with an educational dahlia from [employer] HILARIO-7 Assessment Billing HILARIO-7 Assessment Tool: HILARIO-7 Assessment 73203 Review of Systems Const Reports no additional complaints Eyes Reports no additional complaints Card Reports no additional complaints Resp Reports no additional complaints GI Reports as per HPI, Denies melena, Denies bloating and Denies change in bowel habits Reports no additional complaints Musc Details: no hx of fracture Skin/Breast Denies jaundice Neuro Reports no additional complaints Endo Reports no additional complaints Coleman/Lymph Reports no additional complaints Aller/Immun Reports no additional complaints Physical exam (Primary Care) Tobacco/Smoking Status: Tobacco use Status Tobacco use date assessed 11/08/23 11/08/23 16:10 Patient Tobacco Use Status Never used Tobacco 11/08/23 16:06 e-Cigarette/Vaping Use Never Used 11/08/23 16:06 PHQ-9: PHQ-9 Score PHQ-9: Total score 0 11/08/23 16:50 Depression Screening Interpretation: Negative Telehealth Telehealth Location of provider rendering services: practice address Location of patient: address on file Patient Identification confirmed using: Name, : Yes Telehealth method: video Patient verbally consented to treatment: Yes Patient verbally consented to billing insurance company: Yes Patient informed of any privacy concerns related to visit: Yes Minutes spent on Phone/Video with Pt.: 15 Results Reviewed Results Reviewed: Laboratory Tests 09/16/23 09/16/23 09/16/23 10:02 10:02 10:02 Total Bilirubin AST 831 H ALT 1545 H Alkaline Phosphatase 173 H 09/16/23 10/05/23 10/05/23 10:02 10:55 10:55 Total Bilirubin 0.8 AST 107 H ALT 221 H Alkaline Phosphatase 10/05/23 10/11/23 10/11/23 10:55 12:58 12:58 Total Bilirubin AST 93 H ALT 177 H Alkaline Phosphatase 111 10/11/23 10/26/23 10/26/23 12:58 10:35 10:35 Total Bilirubin AST 46 H ALT 79 H Alkaline Phosphatase 106 10/26/23 11/07/23 11/07/23 10:35 07:35 07:35 Total Bilirubin AST 45 H ALT 63 H Alkaline Phosphatase 96 11/07/23 11/07/23 07:35 07:35 Total Bilirubin 0.6 AST ALT Alkaline Phosphatase 87 Name: Brianda Quispe Age/Sex: 68/F : 1955 Unit#: [id number] Attend Dr: Ellie Vickers PA-C Re11/07/23 Status: DEP REF Location: [facility] Disch: SPEC : [id number] RAMON: 11/07/23 STATUS: COMP REQ : [id number] RECD: 11/07/23-[address]: Ellie Vickers PA-C COMP: 11/07/23-1157 ENTERED: 11/07/23-[address] [facility] [address]: ORDERED: CMP Test Result Flag Reference Sodium 139 135-145 mmol/L Potassium 3.9 3.3-5.1 mmol/L CL 103 96-108 mmol/L CO2 28 22-29 mmol/L Gap 12 12-20 BUN 16 9-16 mg/dL Creat 0.67 0.5-1.4 mg/dL EGFR > 60 NOTE: For -Namib[place] individuals, multiply the result by 1.210. Chronic Kidney Disease: Estimated GFR < 60 mL/min/1.73m2 Severe Kidney Disease: Estimated GFR < 15 mL/min/1.73m2 Glucose, Random 96 60-115 mg/dL CA 9.5 8.4-10.2 mg/dL Total Bili 0.6 0.0-1.0 mg/dL AST (GOT) 45 H 5-31 U/L ALT (GPT) 63 H 0-31 U/L Protein, Total 7.9 6.5-8.0 g/dL Alb 4.1 3.5-5.0 g/dL Alk Phos 87 39-117 U/L Assessment and Plan Assessment & Plan (1) Osteoporosis of lumbar spine: Code(s): M81.0 - Age-related osteoporosis without current pathological fracture Plan: Will not restart Fosamax , will refer to endocrine for other treatment options (2) Elevated liver transaminase level: Code(s): R74.01 - Elevation of levels of liver transaminase levels Plan: Currently being followed by GI, would liver enzymes starting to return back to normal. Reinforced importance of discontinuing all ribs abstaining from alcohol intake and Tylenol use Orders: Referrals Endocrinology Referral M81.0 - Age-related osteoporosis without current pathological fracture Coding Level of Care Code Tele Est Pt Level 3 (80612) Diagnoses Osteoporosis of lumbar spine M81.0 Elevated liver transaminase level R74.01 Additional Codes HILARIO-7 Assessment Billing - HILARIO-7 Assessment Tool: HILARIO-7 Assessment 30067 ([id number])
== END 2023-11-08 16:51 | disposition home or self-care (01) ==
LOC: HO.HMGC 16:13
PROVIDERS: PCP Internal Medicine; Visit Provider Internal Medicine
DX: M81.0 Age-related osteoporosis without current pathological fracture (principal); R74.01 Elevation of levels of liver transaminase levels
CPT/HCPCS: 99213

== ENCOUNTER 2023-12-08 09:37 | Outpatient (REF) | payer MEDICARE, OTHER, SELFPAY ==
[2023-12-08 10:04] LABS: MANUAL DIFF FLAG NO
[2023-12-08 10:49] LABS: Basophils Percent Auto 0.6 % (0-2); Eosinophils Absolute Auto 0.1 X10*3/uL (0.0-0.4); Eosinophils Percent Auto 1.9 % (0-4); Hemoglobin 13.2 g/dl (12.0-16.0); Imm Gran Abs Auto 0.01 X10*3/uL (0.00-0.03); Imm Gran Pct Auto 0.3 % (0.0-0.4); Lymphocytes Percent Auto 32.5 % (20-40); Mean Corpuscular Hemoglobin 29.1 pg (27.0-33.0); Mean Corpuscular Volume 88.1 fL (80.0-98.0); Mean Platelet Volume 9.1 fL (9.4-12.3); Monocytes Absolute Auto 0.3 X10*3/uL (0.1-1.2); Monocytes Percent Auto 10.2 % (2-11); Neutrophils Absolute Auto 1.7 x10*3/uL (2.0-8.3); Neutrophils Percent Auto 54.5 % (45-73); Platelet Count 166 X10*3/uL (160-400); Red Blood Count 4.54 X10*6/uL (4.20-5.50); Red Cell Distribution Width 13.5 % (11.0-16.0); White Blood Count 3.1 X10*3/uL (4.8-10.8)
[2023-12-08 11:19] LABS: Alanine Aminotransferase 37 U/L (0-31); Alkaline Phosphatase 94 U/L (39-117); Anion Gap 11 (12-20); Aspartate Amino Transferase 33 U/L (5-31); Bilirubin Total 0.6 mg/dL (0.0-1.0); Blood Urea Nitrogen 17 mg/dL (9-16); Calcium 9.8 mg/dL (8.4-10.2); Carbon Dioxide 29 mmol/L (22-29); Chloride 101 mmol/L (96-108); Estimated Glomerular Filt Rate > 60; Glucose Random 82 mg/dL (60-115); Potassium 4.3 mmol/L (3.3-5.1); Sodium 137 mmol/L (135-145); Total Protein 7.9 g/dL (6.5-8.0)
== END 2023-12-08 09:38 | disposition home or self-care (01) ==
LOC: HO.LAB 09:37
PROVIDERS: PCP Internal Medicine; Visit Provider Physician Assistant
DX: R74.01 Elevation of levels of liver transaminase levels (principal); K76.0 Fatty (change of) liver, not elsewhere classified
CPT/HCPCS: 36415; 80053; 85025

== ENCOUNTER 2024-11-20 09:03 | Outpatient (RCR) | payer MEDICARE, OTHER, SELFPAY | END 2024-12-24 10:00 | disposition home or self-care (01) | LOC: HO.PTWFD 09:03 | PROVIDERS: PCP Physician Assistant Medical; Visit Provider Internal Medicine | DX: M76.31 Iliotibial band syndrome, right leg (principal); M25.551 Pain in right hip | CPT/HCPCS: 97110; 97161; 97535 ==

== ENCOUNTER 2025-02-06 12:58 | Outpatient (AMB) | payer MEDICARE, OTHER, SELFPAY ==
--- NOTE | 2025-02-06 13:12 | MHC.OFFVIS ---
Vital Signs 02/06/25 13:17 Height 5 ft 5 in Weight 137 lb BMI 22.8 BP 108/62 Blood Pressure Location Rt brachial Position Sitting Pulse 67 Intake Visit Reasons: colonoscopy screening Intake Note: Patient referred for Colonoscopy. Last screening with Dr. Kee 01-01-2020. Recommendation for repeat colonoscopy was 5 yrs. Patient c/o: hx of hemorrhoids since . Takes Miralax for constipation. 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 Her last colonoscopy was [address] Kee. She says that she was told to have another colonoscopy within 5 years because there were 2 adenomas removed. She otherwise denies significant new GI complaints. She does have a known chronic constipation for years. She says she takes MiraLax for this. She says she is in good health overall although she does have osteoporosis. [facility] Medical History (Updated 02/06/25 @ 13:29 by Heath Duncan MD) Colon cancer screening Elevated liver transaminase level Osteoporosis of lumbar spine Chronic constipation Osteopenia of multiple sites Personal history of COVID-19 Need for 23-polyvalent pneumococcal polysaccharide vaccine Toenail deformity Menopause Tubular adenoma of colon Irritable bowel syndrome with diarrhea Mild intermittent asthma without complication Overactive bladder Schulte's cyst of knee Popliteal bursitis of left knee Surgical History Hx of colonoscopy History of eye surgery Family History Father Lymphoma Mother Lung cancer Brother No problems noted. Maternal Grandfather No problems noted. Maternal Grandmother No problems noted. Paternal Grandfather No problems noted. Paternal Grandmother No problems noted. Social History Housing: House Alcohol intake: never Patient Tobacco Use Status: Never used Tobacco e-Cigarette/Vaping Use: Never Used Current occupational status: retired Current occupation: Right Handed Cognitive needs: No Hearing needs: No Vision needs: No Review of Systems Const Denies chills and Denies fever(s) Card Denies chest pain, Denies dyspnea and Denies dyspnea on exertion Resp Denies cough, Denies dyspnea and Denies dyspnea on exertion GI Denies hematochezia and Denies change in bowel habits Denies hematuria Musc Denies back pain and Denies limited range of motion Neuro Denies focal weakness and Denies convulsions Psych Denies depression and Denies mood swings Physical Exam Vital Signs: Last Vital Signs Pulse 67 02/06/25 13:17 BP 108/62 02/06/25 13:17 BMI result Body Mass Index 22.8 Const General: comfortable and no acute distress Orientation/consciousness: patient oriented x3 Neck Neck: Yes no lymphadenopathy Resp Auscultation: clear to auscultation bilaterally Cardio Rhythm: regular rhythm GI Palpation (GI): Soft to palpation, nontender and no guarding Neuro General: patient oriented x3 Assessment & Plan Assessment & Plan (1) Colon cancer screening: Code(s): Z12.11 - Encounter for screening for malignant neoplasm of colon Category: Medical Plan: I explained to her the technique of colonoscopy for screening. I reviewed the risks including but not limited to bleeding and perforation, as well as the benefits and alternatives. She understands and wants to proceed. Coding Level of Care Code New Pt Level 3 (70885) Diagnoses Colon cancer screening Z12.11
[2025-02-06 13:17] VITALS: BP 108/62; PULSE 67; BMI 22.8
--- OUTSIDE RECORDS SUMMARY | 2025-02-06 15:03 | XMS_ITS | Data Portability ---
Author Organization [facility], , [facility] Address [address] [place] [address] Care Team Providers Care Pipe Caulker Name Role Phone CHIRAG GARRIDO Primary Care Provider [phone] ZANDER ALEMAN Primary Care Provider Assessment No assessment recorded. Plan of Treatment Reminders Order Date Submit Date Provider Last Modified By Organization Details Last Modified Time Details Appointments None recorded. Lab hepatitis C virus Ab, serum 2015 016 [facility], [address] [place] [address], [address], 6 06:31:28 iron + total iron-bindin g capacity (TIBC), serum 2015 016 [facility], [address] [place] [address], [address], 6 12:17:42 lipid panel, serum 2015 016 [facility], [address] [place] [address], [address], 6 12:17:41 CBC 2015 016 [facility], [address] [place] [address], [address], 6 11:47:19 BMP, serum or plasma 2015 016 [facility], [address] [place] [address], [address], 6 12:17:40 Referral None recorded. Procedures None recorded. Surgeries None recorded. Imaging None recorded. Medication Orders ciprofloxac in 0.3 % eye drops 2015 016 [id number], [address] [place], [address], 6 04:10:56 Patient TargetsNo targets recorded. Patient Instructions Encounter Date Encounter Id Patient Instructions Last Modified By Organization Details Last Modified Time 11/26/2015 [id number] well visit, wome n 49 to 64: care instructions Not available 11/26/2015 15:50:38 - Continue with daily exercise and healthy eating. - Recommend some weight bearing exercise to help keep bones strong. - Continue with calcium and vitamin D - Please follow up on records from PCP and SCHEDULE ANALYST. silva Not available 11/26/2015 15:45:01 Reason for Referral None Reported. Results Created Date Observation Date Name Description Value Unit Range Abnormal Flag Note LastModifiedBy Organization Detail LastModifiedTime 12/24/19 16 12/24/2015 CBC WBC 3.7 K/? ? ?L 4.0-10 .0 low Not Available [address], [address], 12/24/2015 11:47:19 12/24/19 16 12/24/2015 CBC RBC 4.06 M/? ? ?L 3.93-5 .22 Not Available [address], [address], 12/24/2015 11:47:19 12/24/19 16 12/24/2015 CBC HGB 11.9 g/dL 11.2-1 5.7 Not Available [address], [address], 12/24/2015 11:47:19 12/24/19 16 12/24/2015 CBC HCT 36.9 % 34.1-4 4.9 Not Available [address], [address], 12/24/2015 11:47:19 12/24/19 16 12/24/2015 CBC MCV 90.9 ? ? ?L 79.4-9 4.8 Not Available [address], [address], 12/24/2015 11:47:19 12/24/19 16 12/24/2015 CBC MCH 29.3 pg 25.6-3 2.2 Not Available [address], [address], 12/24/2015 11:47:19 12/24/19 16 12/24/2015 CBC MCHC 32.2 g/dL 32.2-3 5.5 Not Available [address], [address], 12/24/2015 11:47:19 12/24/19 16 12/24/2015 CBC plt 195.0 K/? ? ?L 182.0- 369.0 Not Available [address], [address], 12/24/2015 11:47:19 12/24/19 16 12/24/2015 CBC MPV 9.2 9.4-12 .3 low Not Available [address], [address], 12/24/2015 11:47:19 12/24/19 16 12/24/2015 CBC neut% 57.5 % 34.0-7 1.1 Not Available [address], [address], 12/24/2015 11:47:19 12/24/19 16 12/24/2015 CBC neut# 2.1 1.6-6. 1 Not Available [address], [address], 12/24/2015 11:47:19 12/24/19 16 12/24/2015 CBC lymph % 27.5 % 19.3-5 1.7 Not Available [address], [address], 12/24/2015 11:47:19 12/24/19 16 12/24/2015 CBC lymph # 1.0 K/? ? ?L 1.2-3. 7 low Not Available [address], [address], 12/24/2015 11:47:19 12/24/19 16 12/24/2015 CBC mono% 11.2 % 4.7-12 .5 Not Available [address], [address], 12/24/2015 11:47:19 12/24/19 16 12/24/2015 CBC mono# 0.4 0.2-0. 4 high Not Available [address], [address], 12/24/2015 11:47:19 12/24/1912/24/2015 CBC eo% 3.5 % 0.7-5. 8 Not Available [address], [address], 12/24/2015 11:47:19 12/24/1912/24/2015 CBC eo# 0.1 0.0-0. 4 Not Available [address], [address], 12/24/2015 11:47:19 12/24/1912/24/2015 CBC baso% 0.3 % 0.1-1. 2 Not Available [address], [address], 12/24/2015 11:47:19 12/24/1912/24/2015 CBC baso# 0.0 0.0-0. 1 low Not Available [address], [address], 12/24/2015 11:47:19 12/24/1912/24/2015 CBC RDW-CV 13.3 % 11.7-1 4.4 Not Available [address], [address], 12/24/2015 11:47:19 12/24/1912/2412/24/2015 BMP, serum or plasm a glucose 80 mg/dL 70-100 Not Available [address], [address], 12/24/2015 12:17:40 12/24/19 16 12/24/2015 BMP, serum or plasm a BUN 13 mg/dL 7-18 Not Available [address], [address], 12/24/2015 12:17:40 12/24/19 16 12/24/2015 BMP, serum or plasm a creatinine 0.7 mg/dL 0.8-1. 3 low Not Available [address], [address], 12/24/2015 12:17:40 12/24/19 16 12/24/2015 BMP, serum or plasm a B/C 18.6 ratio Not Available [address], [address], 12/24/2015 12:17:40 12/24/19 16 12/24/2015 BMP, serum or plasm a GFR -non 95.3 mL/mi n Recom kandice d GFR by the Natio nal Kidne y Found ation >60 mL/mi n/1.7 3m2 - Elise l <60 mL/mi n/1.7 3m2 - Chron ic Kidne y Disea se <15 mL/mi n/1.7 3m2 - Kidne y Failu re Not Available [address], [address], 12/24/2015 12:17:40 12/24/19 16 12/24/2015 BMP, serum or plasm a GFR - if 109.6 mL/mi n For Afric an Ameri can patie nts: Resul ts Multi plied by 1.21 Not Available [address], [address], 12/24/2015 12:17:40 12/24/19 16 12/24/2015 BMP, serum or plasm a sodium 142 mmol/ L 136-14 5 Not Available [address], [address], 12/24/2015 12:17:40 12/24/19 16 12/24/2015 BMP, serum or plasm a potassium 4.5 mmol/ L 3.5-5. 1 Not Available [address], [address], 12/24/2015 12:17:40 12/24/19 16 12/24/2015 BMP, serum or plasm a chloride 103 mmol/ L 96-107 Not Available [address], [address], 12/24/2015 12:17:40 12/24/19 16 12/24/2015 BMP, serum or plasm a anion gap 10.1 5.0-15 .0 Not Available [address], [address], 12/24/2015 12:17:40 12/24/19 16 12/24/2015 BMP, serum or plasm a CO2 29 mmol/ L 21-32 Not Available [address], [address], 12/24/2015 12:17:40 12/24/19 16 12/24/2015 BMP, serum or plasm a calcium 9.1 mg/dL 8.5-10 .3 Not Available [address], [address], 12/24/2015 12:17:40 12/24/19 16 12/24/2015 lipid panel , serum cholesterol 171 mg/dL <200 mg/dl Zackary able 200-2 39 mg/dl Borde rline High >240 mg/dl High Not Available [address], [address], 12/24/2015 12:17:41 12/24/19 16 12/24/2015 lipid panel , serum triglyceride s 64 mg/dL <150 mg/dL Elise l 150-1 99 mg/dL Borde rline High 200-4 99 mg/dL High >500 mg/dL Very High Not Available [address], [address], 12/24/2015 12:17:41 12/24/19 16 12/24/2015 lipid panel , serum direct HDL 93 mg/dL Not Available [address], [address], 12/24/2015 12:17:41 12/24/19 16 12/24/2015 iron + total iron- cody ng capac ity (TIBC ), serum iron 46 ug/dL 35-150 Not Available [address], [address], 12/24/2015 12:17:42 12/24/19 16 12/24/2015 iron + total iron- cody ng capac ity (TIBC ), serum T.I.B.C. 352 ug/dL 250-45 0 Not Available [address], [address], 12/24/2015 12:17:42 12/24/19 16 12/24/2015 iron + total iron- cody ng capac ity (TIBC ), serum % saturation 13.1 % Not Available [address], [address], 12/24/2015 12:17:42 12/24/19 16 12/24/2015 LDL, calcu lated , serum (OBS) LDL - calculated 65.2 RISK CATEG ORY LDL GOAL _ CHD or CHD Risk Equiv alent s <100 mg/dl (10-y ear risk >20%) 2+ Risk Facto rs <130 mg/dl (10-y ear risk <= 20%) 0-1 Risk Facto r? <160 mg/dl ? Almos t all peopl e with 0-1 risk facto r have a 10 year risk <10%, thus 10 year risk asses ment in peopl e with 0-1 risk facto r is not arnel aleman. Not Available [address], [address], 12/24/2015 12:17:42 12/24/19 16 12/25/2015 hepat itis C virus Ab, serum hepatitis C antibody NON-RE ACTIVE non-re active normal Not Available [facility] [address], [address], 12/25/2015 06:31:27 12/24/19 16 12/25/2015 hepat itis C virus Ab, serum signal to cut-off 0.02 <1.00 normal Not Available [facility] [address], [address], 12/25/2015 06:31:27 04/19/20 16 04/19/2016 pocst pa strep A POC Negati ve Not Available [address], [address], 04/19/2016 10:14:52 04/27/20 16 04/27/2016 BMP, serum or plasm a glucose 85 mg/dL 70-100 Not Available [address], [address], 04/27/2016 15:51:08 04/27/20 16 04/27/2016 BMP, serum or plasm a BUN 19 mg/dL 7-18 high Not Available [address], [address], 04/27/2016 15:51:08 04/27/20 16 04/27/2016 BMP, serum or plasm a creatinine 0.7 mg/dL 0.8-1. 3 low Not Available [address], [address], 04/27/2016 15:51:08 04/27/20 16 04/27/2016 BMP, serum or plasm a B/C 27.1 ratio Not Available [address], [address], 04/27/2016 15:51:08 04/27/20 16 04/27/2016 BMP, serum or plasm a GFR -non 95.3 mL/mi n Recom kandice d GFR by the Natio nal Kidne y Found ation >60 mL/mi n/1.7 3m2 - Elise l <60 mL/mi n/1.7 3m2 - Chron ic Kidne y Disea se <15 mL/mi n/1.7 3m2 - Kidne y Failu re Not Available [address], [address], 04/27/2016 15:51:08 04/27/20 16 04/27/2016 BMP, serum or plasm a GFR - if 109.6 mL/mi n For Afric an Ameri can patie nts: Resul ts Multi plied by 1.21 Not Available [address], [address], 04/27/2016 15:51:08 04/27/20 16 04/27/2016 BMP, serum or plasm a sodium 140 mmol/ L 136-14 5 Not Available [address], [address], 04/27/2016 15:51:08 04/27/20 16 04/27/2016 BMP, serum or plasm a potassium 4.5 mmol/ L 3.5-5. 1 Not Available [address], [address], 04/27/2016 15:51:08 04/27/20 16 04/27/2016 BMP, serum or plasm a chloride 102 mmol/ L 96-107 Not Available [address], [address], 04/27/2016 15:51:08 04/27/20 16 04/27/2016 BMP, serum or plasm a anion gap 6.7 5.0-15 .0 Not Available [address], [address], 04/27/2016 15:51:08 04/27/20 16 04/27/2016 BMP, serum or plasm a CO2 31 mmol/ L 21-32 Not Available [address], [address], 04/27/2016 15:51:08 04/27/20 16 04/27/2016 BMP, serum or plasm a calcium 9.3 mg/dL 8.5-10 .3 Not Available [address], [address], 04/27/2016 15:51:08 04/29/20 16 04/29/2016 CT chest W gdt HISTOR Y: Abnorm al radiog raphs. Abnorm al right hilum. Not Available [facility] (Outpatient) [address] [place] [address], [address], 04/29/2016 12:58:16 04/29/20 16 04/29/2016 CT chest W gdt Not Available [facility] ([facility]patient) [address] [place] [address], [address], 04/29/2016 12:58:16 04/29/20 16 04/29/2016 CT chest W gdt COMPAR MARI: Radiog raphs, most recent outsid e study from April 19, 2016. Not Available [facility] (Outpatient) [address] [place], [address], 04/29/2016 12:58:16 04/29/20 16 04/29/2016 CT chest W gdt Not Available [facility] (Outpatient) [address] [place], [address], 04/29/2016 12:58:16 04/29/20 16 04/29/2016 CT chest W gdt TECHNI QUE: After the admini strati on of intrav enous contra st, comput ed Not Available [facility] ([facility]patient) [address] [place], [address], 04/29/2016 12:58:16 04/29/20 16 04/29/2016 CT chest W gdt tomogr aphy is obtain ed from lung apex to base. Sagitt al and le l Not Available [facility] (Outpatient) [address] [place] [address], [address], 04/29/2016 12:58:16 04/29/20 16 04/29/2016 CT chest W gdt reform ats genera howie. Automa howie exposu re contro l utiliz ed. Not Available [facility] ([facility]patient) [address] [place] [address], [address], 04/29/2016 12:58:16 04/29/20 16 04/29/2016 CT chest W gdt Not Available [facility]) [address] [place] [address], [address], 04/29/2016 12:58:16 04/29/20 16 04/29/2016 CT chest W gdt FINDIN GS: Not Available [facility] ([facility]) [address] [place] [address], [address], 04/29/2016 12:58:16 04/29/20 16 04/29/2016 CT chest W gdt Not Available [facility] ([facility]) [address] [place] [address], [address], 04/29/2016 12:58:16 04/29/20 16 04/29/2016 CT chest W gdt Lungs and pleura : There is an abnorm al opacit y abutti ng the pleura l Not Available [facility] ([facility]) [address] [place] [address], [address], 04/29/2016 12:58:16 04/29/2004/29/2016 CT chest W gdt surfac e in the right upper lobe medial ly measur ing 2.9 x 2.0 x 3.1 cm. Not Available [facility] ([facility]) [address] [place] [address], [address], 04/29/2016 12:58:16 04/29/20 16 04/29/2016 CT chest W gdt It has a few air bronch ograms within . Pulmon cailin infarc tion, Not Available [facility] ([facility]) [address] [place] [address], [address], 04/29/2016 12:58:16 04/29/20 16 04/29/2016 CT chest W gdt pneumo jensen, or other infilt rate or neopla sm are all possib le. Clinic al Not Available [facility] ([facility] [address] [place], [address], 04/29/2016 12:58:16 04/29/2004/29/2016 CT chest W gdt correl ation recomm ended. There is no eviden ce of pulmon cailin emboli Not Available [facility] ([facility]) [address] [place] [address], [address], 04/29/2016 12:58:16 04/29/2004/29/2016 CT chest W gdt making infarc tion the least likely etiolo gy. No eviden ce of right Not Available [facility]) [address] [place] [address], [address], 04/29/2016 12:58:16 04/29/2004/29/2016 CT chest W gdt hilar mass but it is possib le some of the right hilar densit y is Not Available [facility] ([facility] [address] [place], [address], 04/29/2016 12:58:16 04/29/2004/29/2016 CT chest W gdt relate d to this proces s projec ting over the same region . There is a Not Available [facility] ([facility]) [address] [place] [address], [address], 04/29/2016 12:58:16 04/29/2004/29/2016 CT chest W gdt sub-4 mm pleura l-pare nchyma l densit y in the lingul a. There is a 3 mm Not Available [facility] ([facility] [address] [place], [address], 04/29/2016 12:58:16 04/29/20 16 04/29/2016 CT chest W gdt left lower lobe pulmon cailin nodule . There is a 3 mm right upper lobe Not Available [facility] ([facility]) [address] [place], [address], 04/29/2016 12:58:16 04/29/20 16 04/29/2016 CT chest W gdt pulmon cailin nodule . There is no pleura l fluid. No pronou nced Not Available [facility] ([facility] [address] [place], [address], 04/29/2016 12:58:16 04/29/2004/29/2016 CT chest W gdt inters titial change . No marked emphys ematou s change . No centra l Not Available [facility] ([facility]) [address] [place], [address], 04/29/2016 12:58:16 04/29/2004/29/2016 CT chest W gdt airway lesion . Not Available [facility] [address] [place], [address], 04/29/2016 12:58:16 04/29/2004/29/2016 CT chest W gdt Not Available [facility] [address] [place], [address], 04/29/2016 12:58:16 04/29/2004/29/2016 CT chest W gdt Nodes: No adenop athy is detect ed. Not Available [facility] [address] [place], [address], 04/29/2016 12:58:16 04/29/2004/29/2016 CT chest W gdt Not Available [facility] [address] [place], [address], 04/29/2016 12:58:16 04/29/20 16 04/29/2016 CT chest W gdt Cardio vascul ar: Pulmon cailin arteri al opacif icatio n is very good and no Not Available [facility] ([facility]) [address] [place] [address], [address], 04/29/2016 12:58:16 04/29/20 16 04/29/2016 CT chest W gdt pulmon cailin emboli are identi fied to sugges t pulmon cailin infarc tion as the Not Available [facility] [address] [place] [address], [address], 04/29/2016 12:58:16 04/29/20 16 04/29/2016 CT chest W gdt source of the right lung abnorm ality. No promin ent athero sclero tic Not Available [facility] ([facility]) [address] [place] [address], [address], 04/29/2016 12:58:16 04/29/20 16 04/29/2016 CT chest W gdt change s. Heart not enlarg ed. No major arch anomal y. No perica rdial Not Available [facility] [address] [place] [address], [address], 04/29/2016 12:58:16 04/29/2004/29/2016 CT chest W gdt effusi on. Incide ntal note made of a left-s ided azygos vein. Not Available [facility]) [address] [place] [address], [address], 04/29/2016 12:58:16 04/29/20 16 04/29/2016 CT chest W gdt Not Available [facility]) [address] [place] [address], [address], 04/29/2016 12:58:16 04/29/20 16 04/29/2016 CT chest W gdt Soft tissue and medias tinum: No findin gs of concer n. Not Available [facility] [address] [place], [address], 04/29/2016 12:58:16 04/29/20 16 04/29/2016 CT chest W gdt Not Available [facility] [address] [place], [address], 04/29/2016 12:58:16 04/29/20 16 04/29/2016 CT chest W gdt Upper abdome n: No findin gs of concer n. Not Available [facility] ([facility]) [address] [place] [address], [address], 04/29/2016 12:58:16 04/29/20 16 04/29/2016 CT chest W gdt Not Available [facility] [address] [place] [address], [address], 04/29/2016 12:58:16 04/29/20 16 04/29/2016 CT chest W gdt Bones: No findin gs of concer n. Not Available [facility] ([facility]) [address] [place] [address], [address], 04/29/2016 12:58:16 04/29/20 16 04/29/2016 CT chest W gdt Not Available [facility] [address] [place], [address], 04/29/2016 12:58:16 04/29/20 16 04/29/2016 CT chest W imp IMPRES IAN: Right- sided mass-l jeff opacit y abutti ng the anteri or margin Not Available [facility]) [address] [place] [address], [address], 04/29/2016 12:58:16 04/29/20 16 04/29/2016 CT chest W imp of the chest. This could be a source of chest pain. This could be Not Available [facility]) [address] [place] [address], [address], 04/29/2016 12:58:16 04/29/20 16 04/29/2016 CT chest W imp relate d to a pneumo jensen or rounde d atelec tasis althou gh config uratio n Not Available [facility] ([facility]) [address] [place] [address], [address], 04/29/2016 12:58:16 04/29/2004/29/2016 CT chest W imp for the latter is not typica l and there is no eviden ce of signif icant Not Available [facility] [address] [place] [address], [address], 04/29/2016 12:58:16 04/29/20 16 04/29/2016 CT chest W imp pleura l diseas e elsewh ere. No eviden ce of pulmon cailin emboli with good Not Available [facility] ([facility]) [address] [place] [address], [address], 04/29/2016 12:58:16 04/29/2004/29/2016 CT chest W imp opacif icatio n of the pulmon cailin arteri es here. It makes pulmon cailin Not Available [facility] ([facility]) [address] [place] [address], [address], 04/29/2016 12:58:16 04/29/2004/29/2016 CT chest W imp infarc tion much less likely althou gh the config uratio n is somewh at Not Available [facility] ([facility]) [address] [place] [address], [address], 04/29/2016 12:58:16 04/29/2004/29/2016 CT chest W imp sugges tive of a pulmon cailin infarc tion. Neopla sm is also possib le. If Not Available [facility] ([facility]) [address] [place], [address], 04/29/2016 12:58:16 04/29/20 16 04/29/2016 CT chest W imp pneumo jensen is clinic ally luis le, treatm ent and follow -up CT in six Not Available [facility] [address] [place], [address], 04/29/2016 12:58:16 04/29/20 16 04/29/2016 CT chest W imp weeks would be recomm ended. Otherw ise pulmon cailin consul tation may be Not Available [facility] [address] [place], [address], 04/29/2016 12:58:16 04/29/20 16 04/29/2016 CT chest W imp approp riate. Not Available [facility] [address] [place], [address], 04/29/2016 12:58:16 04/29/2004/29/2016 CT chest W imp Not Available [facility] [address] [place], [address], 04/29/2016 12:58:16 04/29/2004/29/2016 CT chest W imp POS - CDHRAD BOARDW S8 Not Available [facility] [address] [place], [address], 04/29/2016 12:58:16 04/29/20 16 04/29/2016 CT chest W imp Not Available [facility] [address] [place], [address], 04/29/2016 12:58:16 04/29/20 16 04/29/2016 CT chest W imp Edited by: Adelita mercado on 016 12:17 PM Not Available [facility] [address] [place], [address], 04/29/2016 12:58:16 04/29/20 16 04/29/2016 CT chest W imp Not Available [facility] [address] [place], [address], 04/29/2016 12:58:16 04/29/20 16 04/29/2016 CT chest W imp Techno logist : KONOPA CKI, PADMA Not Available [facility] [address] [place], [address], 04/29/2016 12:58:16 04/29/20 16 04/29/2016 CT chest W imp Transc ribed by: Damián alvarez PS360 Result s 2015 11:38 AM Not Available [facility] [address] [place], [address], 04/29/2016 12:58:16 04/29/20 16 04/29/2016 CT chest W imp Interp reted By: CARMEN METZ MD Not Available [facility] [address] [place], [address], 04/29/2016 12:58:16 04/29/20 16 04/29/2016 CT chest W imp Electr onical ly Signed By: Not Available [facility] [address] [place], [address], 04/29/2016 12:58:16 04/29/20 16 04/29/2016 CT chest W imp Not Available [facility] [address] [place], [address], 04/29/2016 12:58:16 04/29/20 16 04/29/2016 CT chest W imp Electr onical ly Signed by: CARMEN MISTRY on 016 12:54 PM Not Available [facility] [address] [place], [address], 04/29/2016 12:58:16 04/29/20 16 04/29/2016 CT chest W Unknown Analyte Not Available [facility] [address] [place], [address], 04/29/2016 12:58:16 04/29/20 16 04/29/2016 CT chest W Unknown Analyte Techno logist : KONOPA CKI, PADMA Not Available [facility] [address] [place], [address], 04/29/2016 12:58:16 04/29/20 16 04/29/2016 CT chest W Unknown Analyte Transc ribed by: Damián alvarez, PS360 Result s 2015 11:38 AM Not Available [facility] [address] [place], [address], 04/29/2016 12:58:16 04/29/20 16 04/29/2016 CT chest W Unknown Analyte Electr onical ly Signed By: CARMEN METZ MD 2015 12:54 PM Not Available [facility] ([facility] [address] [place], [address], 04/29/2016 12:58:16 04/19/20 16 04/19/2016 x-ray , chest OBSERV ATION: Chest 2 views Compar mari none Right sided pain and histor y of pleuri sy The lungs are clear. Bilate ral nipple shadow s incide ntally noted. The right hilum is dense withou t contou r abnorm ality. The cardio medias tinal silhou ette is otherw ise unrema rkable . Impres ian: Dense right hilum althou gh this may very well be normal for this patien t this is someti mes the only sign of a hilar tumor. CT scan is recomm ended. Electr onical ly signed Lisa saldana Physic uzma: [address] [place] [address] (Imaging) [address], [place], [address], 04/20/2016 08:01:40 04/23/20 16 04/19/2016 x-ray , chest Addend um report Chest radiog raph dated 2015 is compar ed with [facility] 2014. Althou gh the examin ation is of slight ly differ ent techni que the right hilum is denser and of slight ly differ ent config uratio n than on prior examin ations . Theref ore CT scan of the chest with contra st is recomm ended. Report was called Lisa Leung uzma: [facility] (Imaging) [address] [place], [address], 05/06/2016 11:28:29 04/23/20 16 04/19/2016 unlis howie imagi ng order No observ ation record ed. [facility] (Imaging) [address] [place], [address], 04/28/2016 09:14:57 04/29/20 16 04/29/2016 CT, chest , w/ contr ast No observ ation record ed. [email or web address] [place] [address], [address], 04/30/2016 10:29:14 04/29/20 16 04/29/2016 CT, chest , w/ contr ast No observ ation record ed. [email or web address] [facility] [address] [place] [address], [address], 04/30/2016 10:29:15 06/23/20 16 06/23/2016 XR, chest No observ ation record ed. [email or web address] [facility] [address] [place] [address], [id number], 06/23/2016 17:48:28 08/17/20 16 08/17/2016 digit al mammo mario alberto scree n 61-yea r-old female with no curren t breast sympto ms. Compar mari made to previo us on 2014 and as far back as 2008. Interp retati on made in conjun ction with comput er-aid ed detect ion and tomosy nthesi s. The breast s are hetero geneou sly dense, which may obscur e small masses . There are no suspic ious masses , areas of tori ectura l distor tion, or suspic ious cluste rs of microc alcifi cation s. IMPRES IAN: No mammog raphic eviden ce of malign filiberto. Recomm end routin e annual survei llance . BI-RAD S CATEGO RY 1 - NEGATI VE DENSIT Y C - HETERO GENEOU SLY DENSE POS - CDHDX0 2 Electr onical ly Signed by: PARIS MC MD on 2015 1:32 PM Techno logist : DAVID SHARONCHEPE Transc ribed by: Damián alvarez PS360 Result s 2015 01:31 PM Electr onical ly Signed By: PARIS GARCIA MD 2015 01:32 PM [email or web address] [address] [place] [address], [address], 08/17/2016 17:46:39 Result Notes None recorded. Problems Name Problem SNOMED Code Status Onset Date Resolution Date Notes Provider Name and Address Organization Details Recorded Time Bursitis of hip 33149539 Active has had injection s Chirag Garrido PA-C [address] [place], [place] [address], [address], [facility] 6 15:17:10 Headache 45587610 Completed 200511/26/2015 Chirag Garrido PA-C [address] [place], [place] [address], [address], [facility] 6 15:17:10 Migraine without aura 17126949 Active 2005 Chirag Garrido PA-C [address] [place], [place] [address], [address], [facility] 6 15:17:10 Senile hyperker atosis 009706751 Completed 200011/26/2015 Chirag Garrido PA-C [address] [place] [address] [place], [address], [facility] 6 15:17:10 Nausea and vomiting 30736538 Completed 200509/19/2013 Chirag Garrido PA-C [address] [place] [address] [place], [address], [facility] 6 15:17:10 Constipa tion 06402356 Completed 200009/19/2013 Chirag Garrido PA-C [address] [place] [address] [place], [place], [address], [facility] 6 15:17:10 Disorder of shoulder 350433910 Completed 200711/26/2015 Chirag Garrido PA-C [address] [place] [address] [place], [address], [facility] 6 15:17:10 Skin sensatio n disturba nce 67898339 Completed 200509/19/2013 Chirag Garrido PA-C [address] [place] [address] [place], [address], [facility] 6 15:17:10 Allergic rhinitis 91181435 Completed 200111/26/2015 Chirag Garrido PA-C [address] [place] [address] [place], [place], [address], [facility] 6 15:17:10 Neck pain 08184687 Completed 200509/19/2013 Chirag Garrido PA-C [address] [place] [address] [place], [address], [facility] 6 15:17:10 Enthesop athy of hip region 12863551 Completed 200309/19/2013 Chirag Garrido PA-C [address] [place] [address] [place], [address], [facility] 6 15:17:10 Hip pain 52250833 Completed 200609/19/2013 Chirag Garrido PA-C [address] [place], [place] [address], [address], [facility] 6 15:17:10 Acute pharyngi tis 694126037 Completed 200209/19/2013 Chirag Garrido PA-C [address] [place] [address], [place], [address], [facility] 6 15:17:10 Closed fracture of phalanx of foot 59628771 Completed 200009/19/2013 Chirag Garrido PA-C [address] [place] [address], [place], [address], [facility] 6 15:17:10 Breathin g painful 37682311 Completed 200009/19/2013 Chirag Garrido PA-C [address] [place] [address], [place], [address], [facility] 6 15:17:10 Common cold 94269650 Completed 200009/19/2013 Chirag Garrido PA-C [address] [place] [address], [place], [address], [facility] 6 15:17:10 Panic disorder without agorapho roxie 80601732 Active 2000 Chirag Garrido PA-C [address] [place], [place] [address], [address], [facility] 6 15:17:10 Acute maxillar y sinusiti s 81257566 Completed 200109/19/2013 Chirag Garrido PA-C [address] [place], [place] [address], [address], [facility] 6 15:17:10 Low back pain 770535793 Completed 200011/26/2015 Chirag Garrido PA-C [address] [place], [place] [address], [address], [facility] 6 15:17:10 Bursitis 44082908 Completed 200709/19/2013 Chirag Garrido PA-C [address] [place] [address], [place], [address], [facility] 6 15:17:10 Marfan's syndrome 41028189 Completed 200011/26/2015 Chirag Garrido PA-C [address] [place] [address], [place], [address], [facility] 6 15:17:10 Pain in limb 97704700 Completed 200009/19/2013 Chirag Garrido PA-C [address] [place] [address], [place], [address], [facility] 6 15:17:10 Problem Notes None recorded. Procedures Surgical History Date Name Laterality Status Provider Name and Address Organization Details Recorded Time 6 POC Strep Testing completed Sherry Negrete CMA [facility] 04/19/2016 10:07:46 Imaging Results Imaging Date Name Status LastModified by [facility] Details LastModified Time 04/19/2016 x-ray, chest completed [address] [facility] ([facility]) [address] [place], [address], 04/20/2016 08:01:40 04/19/2016 x-ray, chest completed [facility] (Im[facility]) [address] [place], [address], 05/06/2016 11:28:29 04/19/2016 unlisted imaging order completed [facility] ([facility]) [address] [place], [address], 04/28/2016 09:14:57 04/29/2016 CT, chest, w/ contrast completed [address], [address], 04/30/2016 10:29:14 04/29/2016 CT, chest, w/ contrast completed [address] [facility] [address] [place] [address], [address], 04/30/2016 10:29:15 06/23/2016 XR, chest completed [email or web address] [facility] [address] [place], [address], 06/23/2016 17:48:28 08/17/2016 digital mammo mario alberto screen completed [email or web address] [facility] [address] [place], [address], 08/17/2016 17:46:39 Procedure Notes None recorded. Medical Equipment None Reported. Allergies Allergen ID Allergen Name Allergen Category Reaction Reaction Severity Criticality Documentation Date Start Date Code Code System Note Provider Name and Address Organization Details Recorded Time 426964 Substance with sulfonami de structure and antibacte rial mechanism of action (substanc e) medicatio n Not available Not available Not available 11/26/2015 12302 8003 SNOMED Nya Navarro MA [facility] 6 14:57:41 Medications Name Sig Start Date Stop Date Status Note LastModified by Organization Details LastModified Time Zyrtec-D 5 mg-120 mg tablet,ext ended release 2007 active Take 1.00 tabs every day PRN for allergies Not Available Not Available Not Available azithromyc in 250 mg tablet 2 tablets on day 1, then one a day for 4 days 2015 active Not Available Not Available Not Avai lable ciprofloxa elio 0.3 % eye drops INSTILL 1 DROP INTO AFFECTED EYE(S) BY OPHTHALMI C ROUTE EVERY 2 HOURSWHIL E AWAKE FOR 2 DAYS THEN 1 DROP EVERY 4 HRS WHILE AWAKE FOR 5 DAYS 2015 active Not Available Not Available Not Avai lable codeine 10 mg-guaifen esin 100 mg/5 mL oral liquid Take 10 mL every 4 hours by oral route as needed. 2015 active Not Available Not Available Not Avai lable Calcium 500 + D 1 tablet daily active Not Available Not Available No t Available Vitals Date Recorded Body weight Body height Body mass index (BMI) Heart rate Systolic blood pressure Diastolic blood pressure Provider Name and Address Organization Details Last Updated DateTime 6 63229.1 65561 g 163.83 cm 21.6 kg/m2 68 /min 94 mm[Hg] 62 mm[Hg] Nya Navarro, [facility] 6 15:07:54 Date Recorded Body height Body weight Body mass index (BMI) Body temperature Heart rate Systolic blood pressure Diastolic blood pressure Provider Name and Address Organization Details Last Updated DateTime 6 163.83 cm 52159.8 2 g 21.6 kg/m2 98.5 [degF] 68 /min 98 mm[Hg] 68 mm[Hg] Sherry Negrete [facility] 6 10:04:23 Date Recorded Body height Body weight Body mass index (BMI) Heart rate Systolic blood pressure Diastolic blood pressure Provider Name and Address Organization Details Last Updated DateTime 163.83 cm 93592.0 1 g 22 kg/m2 72 /min 100 mm[Hg] 60 mm[Hg] Brianda Mccarthy [facility] 6 12:08:00 Social History Question Answer Notes LastModified by Organizat ion Details LastModified Time Tobacco Smoking Status Former Smoker [facility] Chirag Garrido PA-C [address] [place] [address], [address], [facility] 11/26/2015 15:18:09 What Is Your Level Of Alcohol Consumption? Moderate 1 Glass Of Wine With Dinner Information not available 11/26/2015 Do You Wear A Helmet When Biking? Yes Information not available 11/26/2015 What Is Your Level Of Caffeine Consumption? Moderate Information not available 11/26/2015 How Much Tobacco Do You Chew? 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 16+yearssinc elastcigaret te Information not available 11/26/2015 How Many Days In The Past Year Have You Had A Heavy Drinking Consumption (4+ Female, 5+ Male)? 0 Information not available 11/26/2015 Are There Any Guns Present In Your Home? No Information not available 11/26/2015 Live Alone Or With Others? Alone Information not available 11/26/2015 Marital Status Informatio n not available 11/26/2015 Mosquito Repellent Used Routinely Yes Information not available 11/26/2015 How Many Children Do You Have? 3 [email or web address] Information not available 11/26/2015 What Is Your Current Pack Years? 10packyears Information not available 11/26/2015 Seat Belts Used Routinely Yes Information not available 11/26/2015 Are You Sexually Active? Yes [email or web address] Information not available 11/26/2015 Smoke Alarm In Home Yes Information not available 11/26/2015 General Stress Level High Information not available 11/26/2015 Do You Use Sunscreen Routinely? Yes Information not available 11/26/2015 Sex: Unknown Functional Status None recorded. Mental Status None recorded. Family History Relationship Description Onset Age of this Age Resolved Age Notes LastModified by Organization Details LastModified Time Mother Malignant tumor of lung [email or web address] Not available 2015 15:19:49 Mother Essential hypertension [email or web address] Not available 15:19:49 Father Malignant lymphoma [email or web address] Not available 2015 15:19:49 Father Malignant neoplasm of urinary bladder [email or web address] Not available 2015 15:19:49 Medical History Condition Response Migraine Headaches Y PSYCHIATRIC Y Gynecological History Statement/Question Response History of Abnormal Pap Y Current Control Method None Obstetrics History GPAL:G 0 P 0 0 0 0 Immunizations Vaccine Type Date Status Note Provider Nam e and Address Organization Details Recorded Time Influenza, split virus, quadrivalent, PF 6 completed Not Available [facility] 11/17/2019 02:20:15 Tdap 0 completed Tamika mackay [facility] 12/08/2016 15:06:48 zoster live 2 completed Tamika mackay [facility] 12/08/2016 15:07:11 influenza, unspecified formulation 4 completed Tamika mackay [facility] 12/08/2016 15:07:32 influenza, unspecified formulation 3 completed Tamika mackay [facility] 12/08/2016 15:07:46 influenza, unspecified formulation 2 completed Tamika mackay, [facility] 12/08/2016 15:08:07 influenza, unspecified formulation 9 completed Tamika mackay, [facility] 12/08/2016 15:08:38 Novel [id number] , all formulations 9 completed Tamika mackay [facility] 12/08/2016 15:09:59 influenza, unspecified formulation 1 completed Tamika mackay [facility] 12/08/2016 15:10:14 Past Encounters Encounter ID Performer Location Encounter Start Date Encounter Closed Date Diagnosis/Indication Diagnosis SNOMED-CT Code Diagnosis ICD10 Code Diagnosis Note [id number] [place], [facility] [address] [place] [address] 01/31/2001 16:15:00 11/20/2008 02:02:29 [id number] Radiology , [facility] [address] [facility] [place] [address] 03/13/2001 17:30:00 11/20/2008 02:02:29 [id number] [facility] 31 [facility] [place] [address] 03/13/2001 17:00:00 11/20/2008 02:02:29 [id number] FP, [facility] [address] [place] [address] 04/05/2001 13:15:00 11/20/2008 02:02:29 [id number] FP [facility] [place] [address] [place] [address] 08/01/2001 16:15:00 11/20/2008 02:02:29 [id number] FP, [facility] [place] [address] [place] [address] 10/27/2001 09:15:00 11/20/2008 02:02:29 [id number] FP [facility] [place] [address] [place] [address] 01/25/2002 14:15:00 11/20/2008 02:02:29 [id number] FP [facility] [place] [address] [place] [address] 03/05/2003 17:27:18 11/20/2008 02:02:29 [id number] FP, [facility] [place] [address] [place] [address] 11/11/2003 07:57:54 11/12/2003 09:39:00 [id number] [facility] [place] [address] [place] [address] 06/03/2004 16:32:49 06/04/2004 08:22:07 [id number] [facility], [facility] [address] [place] [address] 10/28/2004 08:37:24 10/28/2004 17:13:35 [id number] [facility] [place] [address] [place] [address] 08/27/2005 16:34:59 08/30/2005 09:35:14 [id number] [facility] [place] [address] [place] [address] 09/15/2005 16:15:41 09/16/2005 13:57:59 [id number] , [facility], OFFICE [address] [place] [address] 04/16/2006 11:35:37 04/16/2006 12:47:49 [id number] [facility] [place] [address] [place] [address] 07/08/2006 12:03:12 07/11/2006 09:30:41 [id number] [facility] - [facility] [address] [place] [address] 07/08/2006 12:56:27 07/08/2006 12:56:35 [id number] [facility] [place] [address] [place] [address] 08/04/2006 13:28:50 08/05/2006 08:05:25 [id number] [facility] , [facility] [address] [place] [address] 04/18/2007 17:09:47 04/19/2007 07:15:54 [id number] Radiology , [facility] [address] [place] [address] 04/18/2007 00:00:00 11/20/2008 02:02:29 [id number] [facility] [place] [address] [place] [address] 04/18/2007 16:49:30 04/19/2007 07:49:25 [id number] [facility] [place] [address] [place] [address] 06/14/2007 16:47:19 06/15/2007 07:52:34 [id number] [facility], OFFICE [address] [place] [address] 05/17/2008 16:40:36 06/12/2008 11:19:54 [id number] [facility], OFFICE [address] [place] [address] 10/14/2008 16:11:16 11/20/2008 02:02:29 [id number] Chirag Garrido PA-C , [facility], OFFICE [address] [place] [address] 11/26/2015 14:50:40 11/26/2015 15:36:14 Adult health examination 463294472 Z00.00 see Risk Assessment and Lifestyle Change Counseling section above Iron deficiency 08601157 E61.1 Screening for disorder 783766439 Z11.59 Active or passive immunization 780403198 Z23 [id number] Mellissa Dial MD , [facility], OFFICE [address] [place] [address] 04/19/2016 09:50:06 04/19/2016 10:46:23 Acute sinusitis 01168151 J01.90 Your diagnosis is sinusitis. Most of the time sinusitis does not require antibiotic s as we can fight it off ourselves. The most important things to do are getting extra rest, additional fluids especially hot things like tea and soup, and a nasal spray that I will explain. As far as the rest I recommend napping. This will slow your bodily processes down and allow extra energy to fight off the infection. The nasal spray is a decongesta nt nasal spray such as Afrin long-actin g nasal spray. Use 2 sprays in each nostril morning and night for 3 DAYS ONLY. This is a nasal spray that can be harmful if used more than 3 days as it causes rebound swelling. However if you use it for just 2-3 days, it shrinks down the mucous membranes and allows your sinuses to clear. In addition to the Afrin nasal spray for 3 days, it is helpful to use salt water nose spray frequently throuhout the day or salt water cleansing of the sinuses with a Neti pot. If you are not having significan t improvemen t after another week, please call our office, and call sooner if you are getting worse such as developing a fever. In addition to the above I recommend stopping the Sudafed, continue the Zyrtec every day for at least another 2 weeks. And Mucinex to thin out the thick mucus. You can get this OTC 600 mg twice a day as needed Chest pain 27240688 R07. 9 Because of her history of pleurisy we did obtain a chest x-ray and I will get back to her with the results. Sore throat 306818636 J0 2.9 Your sore throat is not felt to be a strep throat. It is felt to be viral.Advi ce: Increase fluids a great deal, especially drink hot things like soup and tea. Rest, and I recommend napping 1-2 hours a day until you are better. Tylenol and/or ibuprofen for pain. Gargle with warm salt water several times a day; use 1/8 teaspoon of salt to 6-8 ounces of warm water. If your sore throat is still present in 10 days please contact us, and call sooner if you are developing significan t worsening such as developing a fever or inability to tolerate any oral intake. [id number] Heber Hercules MD , [facility], OFFICE [address] [place] [address] 09/25/2016 11:57:20 09/27/2016 08:57:31 Bacterial conjunctivitis 201010031 H10.9 Mild amount white-yell ow mucoid discharge in the left eye, very red. Pt states it was even worse before she came in. Will treat as bacterial, follow up as needed. Does not want ointment. Allergic to sulfa. Health Concerns Section Related Observation LastModified by Organization Detai ls LastModified Time None Recorded Concern Status LastModified by Organization Details LastModified Time None Recorded Advance Directives Directive None Recorded Payers Encounter Date Sequence Insurance Name Policy Number Policy Darling Covered Member ID Darling Member ID Guarantor Name 05/17/2008 1 [facility] [employer] [id number] Brianda Farley [id number] Brianda Quispe 10/14/2008 1 [facility] [employer] [id number] Brianda Farley [id number] Brianda Quispe 11/26/2015 1 [facility] [id number] Brianda Quispe [id number] Brianda Quispe 04/19/2016 1 [facility] [id number] Brianda Quispe [id number] Brianda Quispe 09/25/2016 1 [facility] [id number] Brianda Quispe [id number] Brianda Quispe Notes Date Note Type Note Provider Name and Address Organization Details Recorded Time 11/26/2015 text/html Physical Exam/FemaleReporte d bypatient.Gabo rand is here for a Personal Health Appraisal. She describes her health status as good. Patient's health is the same as last year.Risk Assessment and Lifestyle Change Counseling 50-64Reported bypatient.Coronary Artery Disease Risk Assessment:No Family history of coronary artery disease; No personal history of diabetes; No history of peripheral vascular disease, AAA, or carotid disease; No personal history of coronary artery disease Breast Cancer Risk Assessment:No family history of breast cancer; No history of breast cancer or dcis Colon Cancer Risk Assessment:No family history of colon polyps or cancer; No history of adenomatous colon polyps Lung Cancer Risk Assessment:Former smoker quit more than 15 years ago; No asbestos exposure Fracture Risk Assessment:No unexplained fracture; Patient has average risk for osteoporotic bone fractures Cognitive/Behavior al Risk Assessment:No personal history of mental illness; No family history of mental illness Safety Risk Assessment:No evidence of abuse/neglect Diet:Counseled about appropriate portion size; Counseled about eating a diet low in trans and saturated fats and high in fiber, fruits and vegetables; Counseled about appropriate calcium intake and good dietary sources of calcium. Exercise counseling:Discuss ed the importance of daily physical activity; Discussed the importance of weight bearing exercise Safety:Counseled about protecting skin from the sun and lowering the risk of skin cancer; Counseled about avoiding excessive and unsafe alcohol intake; Counseled about use of helmets for high velocity activiities Family Planning:Not using control; Does not desire 60 year old patient presents to establish primary care. Reports a history of migraines and anxiety attacks occasionally. Chart mentions history of Marfans - pt denies history. Has requested records from previous PCP. Reports up to date on pap, mammogram and colonoscopy. Up to date with dental and opto yearly. Reports was trying to donate blood and was denied due to low iron. Would like iron levels checked. Chirag Garrido PA-C [address] [place] [address], [phone], [facility] 11/26/2015 16:41:46 04/19/2016 text/html Generally health y woman here with a headache and sore throat for one week. Then the last 3 days she got different symptoms, specifically a cough and a right anterior chest pain. She also had fever and chills 2-3 days ago. The headache felt like a sinus headache and she thought she probably sinus infection. She coughed up thick brown mucus which she figured was probably a postnasal drip but then when she started coughing more and have chest pain she became more worried. She has a history of pleurisy within the last few years but states she has never had pneumonia. She started Zyrtec 5 days ago. The chest hurts her when she takes a deep breath or when she bends forward. No known trauma. She is not sure that the chest pain is a result her coughing because she feels like came around same time Mlelissa Dial MD [address] [place] [address], [phone], [facility] 04/19/2016 13:38:43 09/25/2016 text/html Eye irritation since Tuesday morning (5 days). Thought maybe just due to wearing contacts more often. Lot of thick whitish discharge, almost a film over the eye today, red now. Itchy, not painful. No vision changes. No other symptoms - denies nasal congestion, ear pain, cough, SOB, body aches, fevers, chills Heber Hercules MD [address] [place] [address], [phone], [facility] 09/25/2016 14:38:12 OBGyn Episode No OBEpisode recorded.
== END 2025-02-06 13:27 | disposition home or self-care (01) ==
LOC: HO.HGS 13:00
PROVIDERS: PCP Physician Assistant Medical; Visit Provider Surgery
DX: Z12.11 Encounter for screening for malignant neoplasm of colon (principal)
CPT/HCPCS: 99203

== ENCOUNTER → 2025-02-06 12:58 | Outpatient (BNVA) | payer MEDICARE, OTHER, SELFPAY | PROVIDERS: PCP Physician Assistant Medical; Visit Provider Surgery | DX: Z01.818 Encounter for other preprocedural examination (principal) | CPT/HCPCS: 99202 ==

== ENCOUNTER 2025-06-04 05:51 | Day surgery (SDC) | payer MEDICARE, OTHER, SELFPAY ==
--- OUTSIDE RECORDS SUMMARY | 2025-05-09 12:08 | XMS_ITS | Data Portability ---
Author Organization [facility], , [facility] Address [address] [place] [address] Care Team Providers Care Conference Services Coordinator Name Role Phone CHIRAG GARRIDO Primary Care Provider ZANDER ALEMAN Primary Care Provider [phone] Assessment No assessment recorded. Plan of Treatment Reminders Order Date Submit Date Provider Last Modified By Organization Details Last Modified Time Details Appointments None recorded. Lab hepatitis C virus Ab, serum 2015 016 [facility], [address] [place] [address], [address], 6 06:31:28 iron + total iron-bindin g capacity (TIBC), serum 2015 016 [facility], [address] [place] [address], [address], 6 12:17:42 lipid panel, serum 2015 016 [facility], [address] [place] [address], [address], 6 12:17:41 CBC 2015 016 [facility], [address] [place] [address], [address], 6 11:47:19 BMP, serum or plasma 2015 016 [facility], [address] [place] [address], [address], 6 12:17:40 Referral None recorded. Procedures None recorded. Surgeries None recorded. Imaging None recorded. Medication Orders ciprofloxac in 0.3 % eye drops 2015 016 [id number], [address] [place], [address], 6 04:10:56 Patient TargetsNo targets recorded. Patient Instructions Encounter Date Encounter Id Patient Instructions Last Modified By Organization Details Last Modified Time 11/26/2015 [id number] well visit, wome n 49 to 64: care instructions Not available 11/26/2015 15:50:38 - Continue with daily exercise and healthy eating. - Recommend some weight bearing exercise to help keep bones strong. - Continue with calcium and vitamin D - Please follow up on records from PCP and DIRECTOR HEDIS. sivla Not available 11/26/2015 15:45:01 Reason for Referral None Reported. Results Created Date Observation Date Name Description Value Unit Range Abnormal Flag Note LastModifiedBy Organization Detail LastModifiedTime 12/24/19 16 12/24/2015 CBC WBC 3.7 K/ L 4.0-10 .0 low Not Available [address], [address], 12/24/2015 11:47:19 12/24/19 16 12/24/2015 CBC RBC 4.06 M/ L 3.93-5 .22 Not Available [address], [address], 12/24/2015 11:47:19 12/24/19 16 12/24/2015 CBC HGB 11.9 g/dL 11.2-1 5.7 Not Available [address], [address], 12/24/2015 11:47:19 12/24/19 16 12/24/2015 CBC HCT 36.9 % 34.1-4 4.9 Not Available [address], [address], 12/24/2015 11:47:19 12/24/19 16 12/24/2015 CBC MCV 90.9 L 79.4-9 4.8 Not Available [address], [address], 12/24/2015 11:47:19 12/24/19 16 12/24/2015 CBC MCH 29.3 pg 25.6-3 2.2 Not Available [address], [address], 12/24/2015 11:47:19 12/24/19 16 12/24/2015 CBC MCHC 32.2 g/dL 32.2-3 5.5 Not Available [address], [address], 12/24/2015 11:47:19 12/24/19 16 12/24/2015 CBC plt 195.0 K/ L 182.0- 369.0 Not Available [address], [address], 12/24/2015 11:47:19 12/24/19 16 12/24/2015 CBC MPV 9.2 9.4-12 .3 low Not Available [address], [address], 12/24/2015 11:47:19 12/24/19 16 12/24/2015 CBC neut% 57.5 % 34.0-7 1.1 Not Available [address], [address], 12/24/2015 11:47:19 12/24/19 16 12/24/2015 CBC neut# 2.1 1.6-6. 1 Not Available [address], [address], 12/24/2015 11:47:19 12/24/19 16 12/24/2015 CBC lymph % 27.5 % 19.3-5 1.7 Not Available [address], [address], 12/24/2015 11:47:19 12/24/19 16 12/24/2015 CBC lymph # 1.0 K/ L 1.2-3. 7 low Not Available [address], [address], 12/24/2015 11:47:19 12/24/19 16 12/24/2015 CBC mono% 11.2 % 4.7-12 .5 Not Available [address], [address], 12/24/2015 11:47:19 12/24/19 16 12/24/2015 CBC mono# 0.4 0.2-0. 4 high Not Available [address], [address], 12/24/2015 11:47:19 12/24/19 16 12/24/2015 CBC eo% 3.5 % 0.7-5. 8 Not Available [address], [address], 12/24/2015 11:47:19 12/24/19 16 12/24/2015 CBC eo# 0.1 0.0-0. 4 Not Available [address], [address], 12/24/2015 11:47:19 12/24/19 16 12/24/2015 CBC baso% 0.3 % 0.1-1. 2 Not Available [address], [address], 12/24/2015 11:47:19 12/24/19 16 12/24/2015 CBC baso# 0.0 0.0-0. 1 low Not Available [address], [address], 12/24/2015 11:47:19 12/24/19 16 12/24/2015 CBC RDW-CV 13.3 % 11.7-1 4.4 Not Available [address], [address], 12/24/2015 11:47:19 12/24/19 16 12/24/2015 BMP, serum or plasm a glucose 80 mg/dL 70-100 Not Available [address], [address], 12/24/2015 12:17:40 12/24/19 16 12/24/2015 BMP, serum or plasm a BUN 13 mg/dL 7-18 Not Available [address], [address], 12/24/2015 12:17:40 12/24/19 16 12/24/2015 BMP, serum or plasm a creatinine 0.7 mg/dL 0.8-1. 3 low Not Available [address], [address], 12/24/2015 12:17:40 12/24/19 16 12/24/2015 BMP, serum or plasm a B/C 18.6 ratio Not Available [address], [address], 12/24/2015 12:17:40 12/24/19 16 12/24/2015 BMP, serum or plasm a GFR -non 95.3 mL/mi n Recom kandice d GFR by the Natio nal Kidne y Found ation >60 mL/mi n/1.7 3m2 - Elise l <60 mL/mi n/1.7 3m2 - Chron ic Kidne y Disea se <15 mL/mi n/1.7 3m2 - Kidne y Failu re Not Available [address], [address], 12/24/2015 12:17:40 12/24/19 16 12/24/2015 BMP, serum or plasm a GFR - if 109.6 mL/mi n For Afric an Ameri can patie nts: Resul ts Multi plied by 1.21 Not Available [address], [address], 12/24/2015 12:17:40 12/24/19 16 12/24/2015 BMP, serum or plasm a sodium 142 mmol/ L 136-14 5 Not Available [address], [address], 12/24/2015 12:17:40 12/24/19 16 12/24/2015 BMP, serum or plasm a potassium 4.5 mmol/ L 3.5-5. 1 Not Available [address], [address], 12/24/2015 12:17:40 12/24/19 16 12/24/2015 BMP, serum or plasm a chloride 103 mmol/ L 96-107 Not Available [address], [address], 12/24/2015 12:17:40 12/24/19 16 12/24/2015 BMP, serum or plasm a anion gap 10.1 5.0-15 .0 Not Available [address], [address], 12/24/2015 12:17:40 12/24/19 16 12/24/2015 BMP, serum or plasm a CO2 29 mmol/ L 21-32 Not Available [address], [address], 12/24/2015 12:17:40 12/24/19 16 12/24/2015 BMP, serum or plasm a calcium 9.1 mg/dL 8.5-10 .3 Not Available [address], [address], 12/24/2015 12:17:40 12/24/19 16 12/24/2015 lipid panel , serum cholesterol 171 mg/dL <200 mg/dl Zackary able 200-2 39 mg/dl Borde rline High >240 mg/dl High Not Available [address], [address], 12/24/2015 12:17:41 12/24/19 16 12/24/2015 lipid panel , serum triglyceride s 64 mg/dL <150 mg/dL Elise l 150-1 99 mg/dL Borde rline High 200-4 99 mg/dL High >500 mg/dL Very High Not Available [address], [address], 12/24/2015 12:17:41 12/24/19 16 12/24/2015 lipid panel , serum direct HDL 93 mg/dL Not Available [address], [address], 12/24/2015 12:17:41 12/24/19 16 12/24/2015 iron + total iron- cody ng capac ity (TIBC ), serum iron 46 ug/dL 35-150 Not Available [address], [address], 12/24/2015 12:17:42 12/24/19 16 12/24/2015 iron + total iron- cody ng capac ity (TIBC ), serum T.I.B.C. 352 ug/dL 250-45 0 Not Available [address], [address], 12/24/2015 12:17:42 12/24/19 16 12/24/2015 iron + total iron- cody ng capac ity (TIBC ), serum % saturation 13.1 % Not Available [address], [address], 12/24/2015 12:17:42 12/24/19 16 12/24/2015 LDL, calcu lated , serum (OBS) LDL - calculated 65.2 RISK CATEG ORY LDL GOAL _ CHD or CHD Risk Equiv alent s <100 mg/dl (10-y ear risk >20%) 2+ Risk Facto rs <130 mg/dl (10-y ear risk <= 20%) 0-1 Risk Facto r <160 mg/dl [facility] all peopl e with 0-1 risk facto r have a 10 year risk <10%, thus 10 year risk asses ment in peopl e with 0-1 risk facto r is not neces love. Not Available [address], [address], 12/24/2015 12:17:42 12/24/19 16 12/25/2015 hepat itis C virus Ab, serum hepatitis C antibody NON-RE ACTIVE non-re active normal Not Available [facility] [address] [place], [address], 12/25/2015 06:31:27 12/24/19 16 12/25/2015 hepat itis C virus Ab, serum signal to cut-off 0.02 <1.00 normal Not Available [facility] [address] [place], [address], 12/25/2015 06:31:27 04/19/20 16 04/19/2016 pocst pa strep A POC Negati ve Not Available [address], [address], 04/19/2016 10:14:52 04/27/20 16 04/27/2016 BMP, serum or plasm a glucose 85 mg/dL 70-100 Not Available [address], [address], 04/27/2016 15:51:08 04/27/20 16 04/27/2016 BMP, serum or plasm a BUN 19 mg/dL 7-18 high Not Available [address], [address], 04/27/2016 15:51:08 04/27/20 16 04/27/2016 BMP, serum or plasm a creatinine 0.7 mg/dL 0.8-1. 3 low Not Available [address], [address], 04/27/2016 15:51:08 04/27/20 16 04/27/2016 BMP, serum or plasm a B/C 27.1 ratio Not Available [address], [address], 04/27/2016 15:51:08 04/27/20 16 04/27/2016 BMP, serum or plasm a GFR -non 95.3 mL/mi n Recom kandice d GFR by the Natio nal Kidne y Found ation >60 mL/mi n/1.7 3m2 - Elise l <60 mL/mi n/1.7 3m2 - Chron ic Kidne y Disea se <15 mL/mi n/1.7 3m2 - Kidne y Failu re Not Available [address], [address], 04/27/2016 15:51:08 04/27/20 16 04/27/2016 BMP, serum or plasm a GFR - if 109.6 mL/mi n For Afric an Ameri can patie nts: Resul ts Multi plied by 1.21 Not Available [address], [address], 04/27/2016 15:51:08 04/27/20 16 04/27/2016 BMP, serum or plasm a sodium 140 mmol/ L 136-14 5 Not Available [address], [address], 04/27/2016 15:51:08 04/27/20 16 04/27/2016 BMP, serum or plasm a potassium 4.5 mmol/ L 3.5-5. 1 Not Available [address], [address], 04/27/2016 15:51:08 04/27/20 16 04/27/2016 BMP, serum or plasm a chloride 102 mmol/ L 96-107 Not Available [address], [address], 04/27/2016 15:51:08 04/27/20 16 04/27/2016 BMP, serum or plasm a anion gap 6.7 5.0-15 .0 Not Available [address], [address], 04/27/2016 15:51:08 04/27/20 16 04/27/2016 BMP, serum or plasm a CO2 31 mmol/ L 21-32 Not Available [address], [address], 04/27/2016 15:51:08 04/27/20 16 04/27/2016 BMP, serum or plasm a calcium 9.3 mg/dL 8.5-10 .3 Not Available [facility] [address] [place], [address], 04/27/2016 15:51:08 04/29/20 16 04/29/2016 CT chest W gdt HISTOR Y: Abnorm al radiog raphs. Abnorm al right hilum. Not Available [facility] (Outpatient) [address] [place] [address], [address], 04/29/2016 12:58:16 04/29/20 16 04/29/2016 CT chest W gdt Not Available [facility] (Outpatient) [address] [place] [address], [address], 04/29/2016 12:58:16 04/29/20 16 04/29/2016 CT chest W gdt COMPAR MARI: Radiog raphs, most recent outsid e study from April 19, 2016. Not Available [facility] (Outpatient) [address] [place] [address], [address], 04/29/2016 12:58:16 04/29/20 16 04/29/2016 CT chest W gdt Not Available [facility] (Outpatient) [address] [place], [address], 04/29/2016 12:58:16 04/29/2004/29/2016 CT chest W gdt TECHNI QUE: After the admini strati on of intrav enous contra st, comput ed Not Available [facility] (Outpatient) [address] [place] [address], [address], 04/29/2016 12:58:16 04/29/20 16 04/29/2016 CT chest W gdt tomogr aphy is obtain ed from lung apex to base. Sagitt al and le l Not Available [facility] (Outpatient) [address] [place], [address], 04/29/2016 12:58:16 04/29/20 16 04/29/2016 CT chest W gdt reform ats genera howie. Automa howie exposu re contro l utiliz ed. Not Available [facility] (Outpatient) [address] [place], [address], 04/29/2016 12:58:16 04/29/20 16 04/29/2016 CT chest W gdt Not Available [facility] (Outpatient) [address] [place], [address], 04/29/2016 12:58:16 04/29/20 16 04/29/2016 CT chest W gdt FINDIN GS: Not Available [facility] (Outpatient) [address] [place], [address], 04/29/2016 12:58:16 04/29/20 16 04/29/2016 CT chest W gdt Not Available [facility] (Outpatient) [address] [place], [address], 04/29/2016 12:58:16 04/29/20 16 04/29/2016 CT chest W gdt Lungs and pleura : There is an abnorm al opacit y abutti ng the pleura l Not Available [facility] (Outpatient) [address] [place], [address], 04/29/2016 12:58:16 04/29/2004/29/2016 CT chest W gdt surfac e in the right upper lobe medial ly measur ing 2.9 x 2.0 x 3.1 cm. Not Available [facility] (Outpatient) [address] [place], [address], 04/29/2016 12:58:16 04/29/20 16 04/29/2016 CT chest W gdt It has a few air bronch ograms within . Pulmon cailin infarc tion, Not Available [facility] (Outpatient) [address] [place], [address], 04/29/2016 12:58:16 04/29/2004/29/2016 CT chest W gdt pneumo jensen, or other infilt rate or neopla sm are all possib le. Clinic al Not Available [facility] (Outpatient) [address] [place] [address], [address], 04/29/2016 12:58:16 04/29/20 16 04/29/2016 CT chest W gdt correl ation recomm ended. There is no eviden ce of pulmon cailin emboli Not Available [facility] (Outpatient) [address] [place] [address], [address], 04/29/2016 12:58:16 04/29/20 16 04/29/2016 CT chest W gdt making infarc tion the least likely etiolo gy. No eviden ce of right Not Available [facility] (Outpatient) [address] [place] [address], [address], 04/29/2016 12:58:16 04/29/2004/29/2016 CT chest W gdt hilar mass but it is possib le some of the right hilar densit y is Not Available [facility] (Outpatient) [address] [place] [address], [address], 04/29/2016 12:58:16 04/29/2004/29/2016 CT chest W gdt relate d to this proces s projec ting over the same region . There is a Not Available [facility] (Outpatient) [address] [place] [address], [address], 04/29/2016 12:58:16 04/29/2004/29/2016 CT chest W gdt sub-4 mm pleura l-pare nchyma l densit y in the lingul a. There is a 3 mm Not Available [facility] (Outpatient) [address] [place] [address], [address], 04/29/2016 12:58:16 04/29/20 16 04/29/2016 CT chest W gdt left lower lobe pulmon cailin nodule . There is a 3 mm right upper lobe Not Available [facility] (Outpatient) [address] [place], [address], 04/29/2016 12:58:16 04/29/20 16 04/29/2016 CT chest W gdt pulmon cailin nodule . There is no pleura l fluid. No pronou nced Not Available [facility] (Outpatient) [address] [place], [address], 04/29/2016 12:58:16 04/29/20 16 04/29/2016 CT chest W gdt inters titial change . No marked emphys ematou s change . No centra l Not Available [facility] (Outpatient) [address] [place], [address], 04/29/2016 12:58:16 04/29/20 16 04/29/2016 CT chest W gdt airway lesion . Not Available [facility] (Outpatient) [address] [place], [address], 04/29/2016 12:58:16 04/29/20 16 04/29/2016 CT chest W gdt Not Available [facility] (Outpatient) [address] [place], [address], 04/29/2016 12:58:16 04/29/2004/29/2016 CT chest W gdt Nodes: No adenop athy is detect ed. Not Available [facility] (Outpatient) [address] [place], [address], 04/29/2016 12:58:16 04/29/20 16 04/29/2016 CT chest W gdt Not Available [facility] (Outpatient) [address] [place], [address], 04/29/2016 12:58:16 04/29/20 16 04/29/2016 CT chest W gdt Cardio vascul ar: Pulmon cailin arteri al opacif icatio n is very good and no Not Available [facility] (Outpatient) [address] [place] [address], [address], 04/29/2016 12:58:16 04/29/20 16 04/29/2016 CT chest W gdt pulmon cailin emboli are identi fied to sugges t pulmon cailin infarc tion as the Not Available [facility] (Outpatient) [address] [place] [address], [address], 04/29/2016 12:58:16 04/29/20 16 04/29/2016 CT chest W gdt source of the right lung abnorm ality. No promin ent athero sclero tic Not Available [facility] (Outpatient) [address] [place] [address], [address], 04/29/2016 12:58:16 04/29/2004/29/2016 CT chest W gdt change s. Heart not enlarg ed. No major arch anomal y. No perica rdial Not Available [facility] (Outpatient) [address] [place] [address], [address], 04/29/2016 12:58:16 04/29/2004/29/2016 CT chest W gdt effusi on. Incide ntal note made of a left-s ided azygos vein. Not Available [facility] (Outpatient) [address] [place] [address], [address], 04/29/2016 12:58:16 04/29/20 16 04/29/2016 CT chest W gdt Not Available [facility] (Outpatient) [address] [place] [address], [address], 04/29/2016 12:58:16 04/29/2004/29/2016 CT chest W gdt Soft tissue and medias tinum: No findin gs of concer n. Not Available [facility] (Outpatient) [address] [place], [address], 04/29/2016 12:58:16 04/29/20 16 04/29/2016 CT chest W gdt Not Available [facility] (Outpatient) [address] [place], [address], 04/29/2016 12:58:16 04/29/20 16 04/29/2016 CT chest W gdt Upper abdome n: No findin gs of concer n. Not Available [facility] (Outpatient) [address] [place], [address], 04/29/2016 12:58:16 04/29/20 16 04/29/2016 CT chest W gdt Not Available [facility] (Outpatient) [address] [place], [address], 04/29/2016 12:58:16 04/29/20 16 04/29/2016 CT chest W gdt Bones: No findin gs of concer n. Not Available [facility] (Outpatient) [address] [place] [address], [address], 04/29/2016 12:58:16 04/29/20 16 04/29/2016 CT chest W gdt Not Available [facility] (Outpatient) [address] [place], [address], 04/29/2016 12:58:16 04/29/2004/29/2016 CT chest W imp IMPRES IAN: Right- sided mass-l jeff opacit y abutti ng the anteri or margin Not Available [facility] (Outpatient) [address] [place], [address], 04/29/2016 12:58:16 04/29/20 16 04/29/2016 CT chest W imp of the chest. This could be a source of chest pain. This could be Not Available [facility] (Outpatient) [address] [place] [address], [address], 04/29/2016 12:58:16 04/29/20 16 04/29/2016 CT chest W imp relate d to a pneumo jensen or rounde d atelec tasis althou gh config uratio n Not Available [facility] (Outpatient) [address] [place], [address], 04/29/2016 12:58:16 04/29/20 16 04/29/2016 CT chest W imp for the latter is not typica l and there is no eviden ce of signif icant Not Available [facility] (Outpatient) [address] [place] [address], [address], 04/29/2016 12:58:16 04/29/20 16 04/29/2016 CT chest W imp pleura l diseas e elsewh ere. No eviden ce of pulmon cailin emboli with good Not Available [facility] (Outpatient) [address] [place] [address], [address], 04/29/2016 12:58:16 04/29/2004/29/2016 CT chest W imp opacif icatio n of the pulmon cailin arteri es here. It makes pulmon cailin Not Available [facility] (Outpatient) [address] [place] [address], [address], 04/29/2016 12:58:16 04/29/2004/29/2016 CT chest W imp infarc tion much less likely althou gh the config uratio n is somewh at Not Available [facility] (Outpatient) [address] [place], [address], 04/29/2016 12:58:16 04/29/2004/29/2016 CT chest W imp sugges tive of a pulmon cailin infarc tion. Neopla sm is also possib le. If Not Available [facility] (Outpatient) [address] [place] [address], [address], 04/29/2016 12:58:16 04/29/20 16 04/29/2016 CT chest W imp pneumo jensen is [facility], treatm ent and follow -up CT in six Not Available [facility] (Outpatient) [address] [place], [address], 04/29/2016 12:58:16 04/29/20 16 04/29/2016 CT chest W imp weeks would be recomm ended. Otherw ise pulmon cailin consul tation may be Not Available [facility] (Outpatient) [address] [place], [address], 04/29/2016 12:58:16 04/29/20 16 04/29/2016 CT chest W imp approp riate. Not Available [facility] (Outpatient) [address] [place], [address], 04/29/2016 12:58:16 04/29/20 16 04/29/2016 CT chest W imp Not Available [facility] ([facility]) [address] [place], [address], 04/29/2016 12:58:16 04/29/20 16 04/29/2016 CT chest W imp POS - CDHRAD BOARDW S8 Not Available [facility] (Outpatient) [address] [place], [address], 04/29/2016 12:58:16 04/29/20 16 04/29/2016 CT chest W imp Not Available [facility] (Outpatient) [address] [place], [address], 04/29/2016 12:58:16 04/29/2004/29/2016 CT chest W imp Edited by: Adelita mercado on 016 12:17 PM Not Available [facility] (Outpatient) [address] [place], [address], 04/29/2016 12:58:16 04/29/20 16 04/29/2016 CT chest W imp Not Available [facility] (Outpatient) [address] [place], [address], 04/29/2016 12:58:16 04/29/20 16 04/29/2016 CT chest W imp Techno logist : KONOPA CKI, PADMA Not Available [facility] (Outpatient) [address] [place], [address], 04/29/2016 12:58:16 04/29/20 16 04/29/2016 CT chest W imp Transc ribed by: Damián alvarez, PS360 Result s 2015 11:38 AM Not Available [facility] (Outpatient) [address] [place], [address], 04/29/2016 12:58:16 04/29/20 16 04/29/2016 CT chest W imp Interp reted By: CARMEN METZ MD Not Available [facility] (Outpatient) [address] [place], [address], 04/29/2016 12:58:16 04/29/20 16 04/29/2016 CT chest W imp Electr onical ly Signed By: Not Available [facility] (Outpatient) [address] [place], [address], 04/29/2016 12:58:16 04/29/20 16 04/29/2016 CT chest W imp Not Available [facility] (Outpatient) [address] [place], [address], 04/29/2016 12:58:16 04/29/2004/29/2016 CT chest W imp Electr onical ly Signed by: CARMEN MISTRY on 016 12:54 PM Not Available [facility] (Outpatient) [address] [place], [address], 04/29/2016 12:58:16 04/29/20 16 04/29/2016 CT chest W Unknown Analyte Not Available [facility] (Outpatient) [address] [place], [address], 04/29/2016 12:58:16 04/29/20 16 04/29/2016 CT chest W Unknown Analyte Techno logist : ALANNA CKI, PADMA Not Available [facility] (Outpatient) [address] [place], [address], 04/29/2016 12:58:16 04/29/20 16 04/29/2016 CT chest W Unknown Analyte Transc ribed by: Interf kim, PS360 Result s 2015 11:38 AM Not Available [facility] (Outpatient) [address] [place], [address], 04/29/2016 12:58:16 04/29/20 16 04/29/2016 CT chest W Unknown Analyte Electr onical ly Signed By: CARMEN METZ MD 2015 12:54 PM Not Available [facility] (Outpatient) [address] [place], [address], 04/29/2016 12:58:16 04/19/20 16 04/19/2016 x-ray , [...] recomm ended. Electr onical ly signed Lisa gusman: Chon mart[address]nez[address] [place] [address] (Imaging) [address], [place], [address], 04/20/2016 08:01:40 04/23/20 16 04/19/2016 x-ray , chest Addend um report Chest radiog raph dated 2015 is compar ed with [facility] dated 2014 and 2014. Althou gh the examin ation is of slight ly differ ent techni que the right hilum is denser and of slight ly differ ent config uratio n than on prior examin ations . Theref ore CT scan of the chest with contra st is recomm ended. Report was called Lisa Leung uzma: Chon Ko [facility] (Imaging) [address], [place], [address], 05/06/2016 11:28:29 04/23/20 16 04/19/2016 unlis howie imagi ng order No observ ation record ed. [facility] ([facility]) [address], [place], [address], 04/28/2016 09:14:57 04/29/20 16 04/29/2016 CT, chest , w/ contr ast No observ ation record ed. [address], [address], 04/30/2016 10:29:14 04/29/20 16 04/29/2016 CT, chest , w/ contr ast No observ ation record ed. [address] [facility] [address] [place] [address], [address], 04/30/2016 10:29:15 06/23/20 16 06/23/2016 XR, chest No observ ation record ed. [email or web address] [facility] [address] [place] [address], [address], 06/23/2016 17:48:28 08/17/20 16 08/17/2016 digit al [...] on 2015 1:32 PM Techno logist : CHEPE CARLIN Transc ribed by: Damián alvarez, PS360 Result s 2015 01:31 PM Electr onical ly Signed By: PARIS GARCIA MD 2015 01:32 PM [email or web address] [facility] [address] [place] [address], [address], 08/17/2016 17:46:39 Result Notes None recorded. Problems Name Problem SNOMED Code Status Onset Date Resolution Date Notes Provider Name and Address Organization Details Recorded Time Bursitis of hip 15618367 Active has had injection s Chirag Garrido PA-C [address] [place], [place] [address], [address], [facility] 6 15:17:10 Headache 64180249 Completed 200511/26/2015 Chirag Garrido PA-C [address] [place], [place] [address], [address], [facility] 6 15:17:10 Migraine without aura 84381091 Active 2005 Chirag Garrido PA-C [address] [place], [place] [address], [address], [facility] 6 15:17:10 Senile hyperker atosis 122060243 Completed 200011/26/2015 Chirag Garrido PA-C [address] [place], [place] [address], [address], [facility] 6 15:17:10 Nausea and vomiting 27510209 Completed 200509/19/2013 Chirag Garrido PA-C [address] [place], [place] [address], [address], [facility] 6 15:17:10 Constipa tion 68327426 Completed 200009/19/2013 Chirag Garrido PA-C [address] [place], [place] [address], [address], [facility] 6 15:17:10 Disorder of shoulder 231335832 Completed 200711/26/2015 Chirag Garrido PA-C [address] [place], [place] [address], [address], [facility] 6 15:17:10 Skin sensatio n disturba nce 42030202 Completed 200509/19/2013 Chirag Garrido PA-C [address] [place], [place] [address], [address], [facility] 6 15:17:10 Allergic rhinitis 07139247 Completed 200111/26/2015 Chirag Garrido PA-C [address] [place], [place] [address], [address], [facility] 6 15:17:10 Neck pain 79758308 Completed 200509/19/2013 Chirag Garrido PA-C [address] [place], [place] [address], [address], [facility] 6 15:17:10 Enthesop athy of hip region 56682294 Completed 200309/19/2013 Chirag Garrido PA-C [address] [place], [place] [address], [address], [facility] 6 15:17:10 Pain of hip region 74186768 Completed 200609/19/2013 Chirag Garrido PA-C [address] [place], [place] [address], [address], [facility] 6 15:17:10 Acute pharyngi tis 859489232 Completed 200209/19/2013 Chirag Garrido PA-C [address] [place], [place] [address], [address], [facility] 6 15:17:10 Closed fracture of phalanx of foot 82725057 Completed 200009/19/2013 Chirag Garrido PA-C [address] [place], [place] [address], [address], [facility] 6 15:17:10 Breathin g painful 14691545 Completed 200009/19/2013 Chirag Garrido PA-C [address] [place], [place] [address], [address], [facility] 6 15:17:10 Common cold 78714145 Completed 200009/19/2013 Chirag Garrido PA-C [address] [place], [place] [address], [address], [facility] 6 15:17:10 Panic disorder without agorapho roxie 00831038 Active 2000 Chirag Garrido PA-C [address] [place], [place] [address], [address], [facility] 6 15:17:10 Acute maxillar y sinusiti s 31795255 Completed 200109/19/2013 Chirag Garrido PA-C [address] [place], [place] [address], [address], [facility] 6 15:17:10 Low back pain 109687022 Completed 200011/26/2015 Chirag Garrido PA-C [address] [place] [address] [place], [address], [facility] 6 15:17:10 Bursitis 06871002 Completed 200709/19/2013 Chirag Garrido PA-C [address] [place], [place] [address], [address], [facility] 6 15:17:10 Marfan's syndrome 82341871 Completed 200011/26/2015 Chirag Garrido PA-C [address] [place] [address] [place], [address], [facility] 6 15:17:10 Pain in limb 93830362 Completed 200009/19/2013 Chirag Garrido PA-C [address] [place] [address] [place], [address], [facility] 6 15:17:10 Problem Notes None recorded. Procedures Surgical History Date Name Laterality Status Provider Name and Address Organization Details Recorded Time 6 POC Strep Testing completed Sherry Negrete CMA [facility] 04/19/2016 10:07:46 Imaging Results None recorded. Procedure Notes None recorded. Medical Equipment None Reported. Allergies Allergen ID Allergen Name Allergen Category Reaction Reaction Severity Criticality Documentation Date Start Date Code Code System Note Provider Name and Address Organization Details Recorded Time 284391 Substance with sulfonami de structure and antibacte rial mechanism of action (substanc e) medicatio n Not available Not available Not available 11/26/2015 06967 8003 SNOMED Nya Navarro MA null, [facility] 6 14:57:41 Medications Name Sig Start Date [...] Body mass index (BMI) Heart rate Systolic And Diastolic Provider Name and Address Organization Details Last Updated DateTime 11/26/2015 94472.10 4886 g 163.83 cm 21.6 kg/m2 68 /min 94/62 mm[Hg] Nya Navarro [facility] 11/26/2015 15:07:54 Date Recorded Body height Body weight Body mass index (BMI) Body temperature Heart rate Systolic And Diastolic Provider Name and Address Organization Details Last Updated DateTime 163.83 cm 90482.8 2 g 21.6 kg/m2 98.5 [degF] 68 /min 98/68 mm[Hg] Sherry Negrete [facility] 6 10:04:23 Date Recorded Body height Body weight Body mass index (BMI) Heart rate Systolic And Diastolic Provider Name and Address Organization Details Last Updated DateTime 09/25/2016 163.83 cm 68327.01 g 22 kg/m2 72 /min 100/60 mm[Hg] Brianda Mccarthy [facility] 6 12:08:00 Social History Question Answer Notes LastModified by Organizat ion Details LastModified Time Tobacco Smoking Status Former Smoker [facility] Chirag Garrido PA-C [address] [place] [address], [address], [facility] 11/26/2015 15:18:09 Do You Wear A Helmet When Biking? Yes Information not available 11/26/2015 What Is Your Level Of Caffeine Consumption? Moderate Information not available 11/26/2015 How Much Tobacco Do You Chew? None Information not available 11/26/2015 Education Post Graduate Information not available 11/26/2015 When Did You Quit Smoking? 16+yearssinc elastcigaret te [email or web address] Information not available 11/26/2015 How Many Days [...] How Many Children Do You Have? 3 [email or web address] Information not available 11/26/2015 What Is Your Current Pack Years? 10packyears Information not available 11/26/2015 Seat Belts Used Routinely Yes Information not available 11/26/2015 Are You Sexually Active? Yes [email or web address] Information not available 11/26/2015 Smoke Alarm In Home Yes Information not available 11/26/2015 General Stress Level High Information not available 11/26/2015 Do You Use Sunscreen Routinely? Yes Information not available 11/26/2015 Sex: Unknown Functional Status Question Answer Note LastModified by Organizat ion Details LastModified Time What is your level of alcohol consumption? 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 Family History Relationship Description Onset Age of this Age Resolved Age Notes LastModified by Organization Details LastModified Time Mother Malignant neoplasm of lung [email or web address] Not available 2015 15:19:49 Mother Essential hypertension [email or web address] Not available 15:19:49 Father Malignant lymphoma [email or web address] Not available 2015 15:19:49 Father Malignant neoplasm of urinary bladder [email or web address] Not available 2015 15:19:49 Medical History Condition [...] 11/17/2019 02:20:15 Tdap 0 completed Tamika mackay [facility] 12/08/2016 15:06:48 zoster live 2 completed Tamika mackay [facility] 12/08/2016 15:07:11 influenza, unspecified formulation 4 completed Tamika Slaughter null, [facility] 12/08/2016 15:07:32 influenza, unspecified formulation 3 completed Tamika Slaughter null, [facility] 12/08/2016 15:07:46 influenza, unspecified formulation 2 completed Tamika Slaughter null, [facility] 12/08/2016 15:08:07 influenza, unspecified formulation 9 completed Tamika Slaughter null, [facility] 12/08/2016 15:08:38 Novel [id number] , all formulations 9 completed Tamika Slaughter null, [facility] 12/08/2016 15:09:59 influenza, unspecified formulation 1 completed [facility]2016 15:10:14 Past Encounters Encounter ID Performer Location Encounter Start Date Encounter Closed Date Diagnosis/Indication Diagnosis SNOMED-CT Code Diagnosis ICD10 Code Diagnosis Note [id number] Erick Grady MD , [facility] OFFICE [address] [place] [address] 01/31/2001 16:15:00 11/20/2008 02:02:29 [id number] [facility] , [address] [address] 03/13/2001 17:30:00 11/20/2008 02:02:29 [id number] Erick Grady MD [facility] [address] [place] [address] 03/13/2001 17:00:00 11/20/2008 02:02:29 [id number] Jagdish Mera MD , [facility] OFFICE [address] [place] [address] 04/05/2001 13:15:00 11/20/2008 02:02:29 [id number] Erick Grady MD , [facility], OFFICE [address] [place] [address] 08/01/2001 16:15:00 11/20/2008 02:02:29 [id number] Danyel Jones III, MD , [facility], OFFICE [address] [place] [address] 10/27/2001 09:15:00 11/20/2008 02:02:29 [id number] Asia MICHEL, [facility], OFFICE [address] [place] [address] 01/25/2002 14:15:00 11/20/2008 02:02:29 [id number] Asia MICHEL, [facility], OFFICE [address] [place] [address] 03/05/2003 17:27:18 11/20/2008 02:02:29 [id number] Asia MICHEL, [facility], OFFICE [address] [place] [address] 11/11/2003 07:57:54 11/12/2003 09:39:00 [id number] Erick Grady MD , [facility], OFFICE [address] [place] [address] 06/03/2004 16:32:49 06/04/2004 08:22:07 [id number] [facility], NOE BADILLO MD [facility], [facility] [address] [place] [address] 10/28/2004 08:37:24 10/28/2004 17:13:35 [id number] Francine ROSADO , [facility], OFFICE [address] [place] [address] 08/27/2005 16:34:59 08/30/2005 09:35:14 [id number] Francine MICHEL, [facility], OFFICE [address] [place] [address] 09/15/2005 16:15:41 09/16/2005 13:57:59 [id number] Noe Badillo MD , [facility], OFFICE [address] [place] [address] 04/16/2006 11:35:37 04/16/2006 12:47:49 [id number] MD ANAND Haynes, [facility], OFFICE [address] [place] [address] 07/08/2006 12:03:12 07/11/2006 09:30:41 [id number] [facility] - [facility] [address] [facility] [place] [address] 07/08/2006 12:56:27 07/08/2006 12:56:35 [id number] MD ANAND Dorsey, [facility], OFF[address] [place] [address] 08/04/2006 13:28:50 08/05/2006 08:05:25 [id number] [facility] [facility] , [facility] [address] [place] [address] 04/18/2007 17:09:47 04/19/2007 07:15:54 [id number] [facility] , [facility] [address] [place] [address] 04/18/2007 00:00:00 11/20/2008 02:02:29 [id number] Jagdish Mera MD , [facility], OFFICE [address] [place] [address] [place] [address] 04/18/2007 16:49:30 04/19/2007 07:49:25 [id number] Erikc Grady MD , [facility], OFFICE [address] [place] [address] [place] [address] 06/14/2007 16:47:19 06/15/2007 07:52:34 [id number] Erick Grady MD , [facility], OFFICE [address] [place] [address] [place] [address] 05/17/2008 16:40:36 06/12/2008 11:19:54 [id number] Daniel Olsen PA-C , [facility], OFFICE [address] [place] [address] [place] [address] 10/14/2008 16:11:16 11/20/2008 02:02:29 [id number] JAYNE Dominguez, [facility], OFFICE [address] [place] [address] 11/26/2015 14:50:40 11/26/2015 15:36:14 Adult health examination 344436180 Z00.00 see Risk Assessment and Lifestyle Change Counseling section above Iron deficiency 94541074 E61.1 Screening for disorder 582840303 Z11.59 Active or passive immunization 144425927 Z23 [id number] Mellissa Dial MD , [facility], OFFICE [address] [place] [address] 04/19/2016 09:50:06 04/19/2016 10:46:23 Acute sinusitis 42324962 J01.90 Your diagnosis is sinusitis. Most of [...] twice a day as needed Chest pain 92995382 R07. 9 Because of her history of pleurisy we did obtain a chest x-ray and I will get back to her with the results. Sore throat 630329732 J0 2.9 Your sore throat is not [...] or inability to tolerate any oral intake. [id number] Heber Hercules MD , [facility], [address]ICE [address] [place] [address] 09/25/2016 11:57:20 09/27/2016 08:57:31 Bacterial conjunctivitis 183239132 H10.9 Mild amount white-yell ow mucoid discharge [...] Recorded Advance Directives Directive None Recorded Payers Insurance Date Sequence Insurance Name Policy Number Policy Darling Covered Member ID Darling Member ID Guarantor Name 03/01/2025 1 [facility] [id number] Brianda Quispe [id number] Brianda Quispe 03/01/2025 1 [place] [facility] [id number] Brianda Farley [id number] Brianda Quispe 03/01/2025 1 [place] [facility] [id number] Brianda Farley [id number] Brianda Quispe Notes Date Note Type Note [...] like iron levels checked. Chirag Garrido PA-C [address] [place] [address], [phone], [facility] 11/26/2015 16:41:46 04/19/2016 text/html Generally health y [...] she feels like came around same time Mellissa Dial MD [address] [place], [address], [facility] 04/19/2016 13:38:43 09/25/2016 text/html Eye irritation since Tuesday morning (5 days). Thought maybe just due to wearing contacts more often. Lot of thick whitish discharge, almost a film over the eye today, red now. Itchy, not painful. No vision changes. No other symptoms - denies nasal congestion, ear pain, cough, SOB, body aches, fevers, chills Heber Simkin, MD [address] [place] [address], [phone], [facility] 09/25/2016 14:38:12 OBGyn Episode No OBEpisode recorded.
[2025-05-31 14:02] VITALS: BMI 22.8
--- NOTE | 2025-06-03 10:13 | HO.ANESPROP2 ---
Documented by User: Mary Grace NP 06/03/25 10:13 HPI - Anesthesia Eval Consult details Narrative: 69yo F for Colonoscopy with possible Polypectomy PMFSH Active Problems Active Problems: All Active Problems Fatty liver (Acute) Acquired planovalgus deformity of left foot (Acute) Colon cancer screening (Acute) Elevated liver transaminase level (Acute) Osteoporosis of lumbar spine (Acute) Chronic constipation (Acute) Tubular adenoma of colon (Acute) Irritable bowel syndrome with diarrhea (Acute) Mild intermittent asthma without complication (Acute) Overactive bladder (Acute) Past Medical History Medical History Rectocele Colon cancer screening Elevated liver transaminase level Osteoporosis of lumbar spine Chronic constipation Osteopenia of multiple sites Toenail deformity Menopause Tubular adenoma of colon Irritable bowel syndrome with diarrhea Mild intermittent asthma without complication Overactive bladder Schulte's cyst of knee Popliteal bursitis of left knee Family History Family History Father Lymphoma Mother Lung cancer Brother No problems noted. Maternal Grandfather No problems noted. Maternal Grandmother No problems noted. Paternal Grandfather No problems noted. Paternal Grandmother No problems noted. Surgical History Surgical History Hx of bilateral cataract extraction History of liver biopsy Hx of colonoscopy History of eye surgery Social History Social History Housing: House Alcohol intake: never Patient Tobacco Use Status: Never used Tobacco e-Cigarette/Vaping Use: Never Used Current occupational status: retired Current occupation: Right Handed Cognitive needs: No Hearing needs: No Vision needs: No Meds Allergies Allergy/AdvReac Type Severity Reaction Status Date / Time Sulfa (Sulfonamide Allergy Unknown rash Verified 06/04/25 06:11 Antibiotics) Home Medications ?Medication ?Instructions ?Recorded ?Confirmed ?Last Taken ?Type cetirizine 10 mg tablet (Zyrtec) 5 mg PO DAILY PRN allergies 09/24/20 05/31/25 Unknown History calcium carbonate 600 mg PO DAILY 10/26/22 05/31/25 Unknown History cholecalciferol (vitamin D3) 50 50 mcg PO DAILY 10/26/22 05/31/25 Unknown History mcg (2,000 unit) capsule Exam Height,Weight and Vital Signs: Height 5 ft 5 in Weight 62.142 kg Assessment and Plan Assessment Anesthesia Assessment: Chart Reviewed Documented by User: Frank Estes MD 06/04/25 07:15 [facility] Past Medical History Medical History Rectocele Colon cancer screening Elevated liver transaminase level Osteoporosis of lumbar spine Chronic constipation Osteopenia of multiple sites Toenail deformity Menopause Tubular adenoma of colon Irritable bowel syndrome with diarrhea Mild intermittent asthma without complication Overactive bladder Schulte's cyst of knee Popliteal bursitis of left knee Functional capacity: independent ambulation Patient : No Family History Family History Father Lymphoma Mother Lung cancer Brother No problems noted. Maternal Grandfather No problems noted. Maternal Grandmother No problems noted. Paternal Grandfather No problems noted. Paternal Grandmother No problems noted. Family history of problems with anesthesia: No Surgical History Surgical History Hx of bilateral cataract extraction History of liver biopsy Hx of colonoscopy History of eye surgery History of Problems with Anesthesia: No Social History Social History Housing: House Alcohol intake: never Patient Tobacco Use Status: Never used Tobacco e-Cigarette/Vaping Use: Never Used Current occupational status: retired Current occupation: Right Handed Cognitive needs: No Hearing needs: No Vision needs: No Meds Allergies Allergy/AdvReac Type Severity Reaction Status Date / Time Sulfa (Sulfonamide Allergy Unknown rash Verified 06/04/25 06:11 Antibiotics) Home Medications ?Medication ?Instructions ?Recorded ?Confirmed ?Last Taken ?Type cetirizine 10 mg tablet (Zyrtec) 5 mg PO DAILY PRN allergies 09/24/20 05/31/25 Unknown History calcium carbonate 600 mg PO DAILY 10/26/22 05/31/25 Unknown History cholecalciferol (vitamin D3) 50 50 mcg PO DAILY 10/26/22 05/31/25 Unknown History mcg (2,000 unit) capsule Exam Exam Date and Time: 06/04/2025 Airway Mallampati Class: II TM Dist: >3cm Neck ROM: Full Loose/Missing/Broken Teeth: No Heart: rrr Lungs: cta Other: normal Assessment and Plan Assessment Anesthesia Assessment: Anesthesia Plan Discussed Final Anesthetic Review Family History of Problems with Anesthesia: No History of Problems with Anesthesia: No NPO: Yes Final Preanesthetic Review: No Changes in Pt Med Stat, Meds/Allgs Chart Reviewed, Consent Obtained/Reviewed and Anes Risks/Benef Reviewed Patient Risk: Low Procedure Risk: Low Anesthetic Plan Anesthetic Plan: MAC: Disposition: Standard PACU
[2025-06-04 06:11] VITALS: BMI 22.1
[2025-06-04 06:22] VITALS: BP 107/63; PULSE 61; RESP 15; TEMP 36.9; O2SAT 98
[2025-06-04] MEDS: Lactated Ringers 1,000 ML 100 ML IVCONT (06:30)
--- NOTE | 2025-06-04 07:10 | MHC.SHP ---
Pre-Procedural Eval Section A - 24 Hr Update-Section A only Date of Service: 06/04/25 Section B - Complete if H&P > 30 days Chief Complaint: screening Details of Present Illness: For follow up colonoscopy -had history of adenomas in 2019, colonoscopy done by Dr. Kee Relevant Family History (Specify if Yes): No Relevant Social History: None Present Medications: see Short Stay Collaborative assessment Medical History: Significant History (IBS, overactive bladder, asthma) Allergies: Allergies Allergy/AdvReac Type Severity Reaction Status Date / Time Sulfa (Sulfonamide Allergy Unknown rash Verified 06/04/25 06:11 Antibiotics) Review of Systems Sugical H&P ROS: Negative: Constitution, Cardiovascular, Respiratory and Gastrointestinal Exam Surgical H&P Exam: Normal: Heart, Normal: Lungs and Normal: Abdomen Plan Diagnosis/Plan: Unchanged I have reviewed the history and physical and performed a pertinent physical examination on my patient. No changes have occurred unless specified. Time Spent With Patient Time: Total time managing care of this patient today ____ minutes.
[2025-06-04 08:03] VITALS: BP 95/52; PULSE 70; RESP 16; TEMP 36.2; O2SAT 97
--- NOTE | 2025-06-04 08:06 | W.PM.OPN ---
Operative Note Operative Note Date of Service: 06/04/25 Narrative: Preop diagnosis: History of tubular adenoma Postop diagnosis: Internal external hemorrhoids otherwise normal colonoscopy findings Procedure: Colonoscopy Surgeon: Heath Duncan MD The patient is a 69 year old female who had a colonoscopy in [address] Kee and was noted to have 2 adenomas. She was recommended by Dr. Kee to undergo a follow up colonoscopy in 5 years. She understood the technique of the planned procedure as well as the risks, benefits, and alternatives. The patient was brought to the operating room and placed in left lateral decubitus position under monitored anesthesia care. A surgical time-out was done. A full digital rectal exam was done and this did not reveal any significant anal lesions. She did have prominent internal and external hemorrhoids. The tip of the Olympus colonoscope was gently introduced through the anal orifice advanced with insufflation all the way to the cecum. The cecum was intubated. The cecum was identified by visualization of the ileocecal valve as well as the appendiceal orifice. The cecal mucosa was unremarkable. The scope was gradually withdrawn with careful examination of the entire colonic mucosa being done with scope withdrawal. The patient had adequate bowel prep so it was unlikely that any lesion may have been missed. The rectum was reached and there were no lesions seen. The anal canal was unremarkable except for prominent internal external hemorrhoids. The scope was then withdrawn completely with desufflation. The patient tolerated the procedure well. There were no immediate complications. Her next colonoscopy may be in the next 10 years.
[2025-06-04 08:18] VITALS: BP 100/63; PULSE 64; RESP 16; TEMP 36.5; O2SAT 98
== END 2025-06-04 08:35 | disposition home or self-care (01) ==
PROVIDERS: PCP Physician Assistant Medical; Visit Provider Surgery
PROC: 0DBE8ZZ Excision of Large Intestine, Via Natural or Artificial Opening Endoscopic (ICD-10-PCS; CPT G0105; principal; 2025-06-04 07:30)
DX: Z12.11 Encounter for screening for malignant neoplasm of colon (principal); K64.8 Other hemorrhoids; K64.4 Residual hemorrhoidal skin tags; J45.909 Unspecified asthma, uncomplicated; K76.0 Fatty (change of) liver, not elsewhere classified; Z86.0101 Personal history of adenomatous and serrated colon polyps; Z79.899 Other long term (current) drug therapy
CPT/HCPCS: G0105; J2003; J2704; J3010

== ENCOUNTER → 2025-06-04 05:51 | Outpatient (BNV) | payer MEDICARE, OTHER, SELFPAY | PROVIDERS: PCP Physician Assistant Medical; Visit Provider Surgery | DX: Z12.11 Encounter for screening for malignant neoplasm of colon (principal); Z86.0101 Personal history of adenomatous and serrated colon polyps; K64.8 Other hemorrhoids | CPT/HCPCS: G0105 ==

== ENCOUNTER 2025-06-17 09:49 | Outpatient (AMB) | payer MEDICARE, OTHER, SELFPAY ==
--- NOTE | 2025-06-17 09:55 | MHC.OFFVIS ---
Vital Signs 06/17/25 09:59 Height 5 ft 5 in Weight 138 lb BMI 23.0 BP 108/64 Blood Pressure Location Rt brachial Position Sitting Pulse 73 Intake Visit Reasons: S/P colonoscopy Intake Note: Patient here s/p colonoscopy on 06-04-2025. Patient c/o: reports procedure went well. No concerns. Configuration Management Advisor Required: No Accompanied by: Self / Same As Patient Allergies Sulfa (Sulfonamide Antibiotics) Allergy (Unknown, Verified 06/17/25 09:59) rash HPI HPI S/P colonoscopy: Details: She underwent colonoscopy for screening last June 04, 2025. She tolerated the procedure well. She currently denies significant complaints. [facility] Medical History Rectocele Colon cancer screening Elevated liver transaminase level Osteoporosis of lumbar spine Chronic constipation Osteopenia of multiple sites Toenail deformity Menopause Tubular adenoma of colon Irritable bowel syndrome with diarrhea Mild intermittent asthma without complication Overactive bladder Schulte's cyst of knee Popliteal bursitis of left knee Surgical History Hx of bilateral cataract extraction History of liver biopsy Hx of colonoscopy History of eye surgery Family History Father Lymphoma Mother Lung cancer Brother No problems noted. Maternal Grandfather No problems noted. Maternal Grandmother No problems noted. Paternal Grandfather No problems noted. Paternal Grandmother No problems noted. Social History Housing: House Alcohol intake: never Patient Tobacco Use Status: Never used Tobacco e-Cigarette/Vaping Use: Never Used Current occupational status: retired Current occupation: Right Handed Cognitive needs: No Hearing needs: No Vision needs: No Review of Systems Const Denies chills and Denies fever(s) Card Denies chest pain, Denies dyspnea and Denies dyspnea on exertion Resp Denies cough, Denies dyspnea and Denies dyspnea on exertion GI Denies hematochezia and Denies change in bowel habits Denies hematuria Musc Denies back pain and Denies limited range of motion Neuro Denies focal weakness and Denies convulsions Psych Denies depression and Denies mood swings Physical Exam Const General: comfortable and no acute distress Resp Effort & Inspection: normal respiratory effort Cardio Rate: regular rate GI Palpation (GI): Soft to palpation, not firm, nontender and no guarding Assessment & Plan Assessment & Plan (1) Colon cancer screening: Code(s): Z12.11 - Encounter for screening for malignant neoplasm of colon Category: Medical Plan: Status post colonoscopy. She did have internal and external hemorrhoids. I did not see any polyps or any lesions She falls at average risk for colon cancer. Her next colonoscopy may therefore be in the next 10 years if she is still healthy by then. Coding Level of Care Code Est Pt Level 2 (90381) Diagnoses Colon cancer screening Z12.11
[2025-06-17 09:59] VITALS: BP 108/64; PULSE 73; BMI 23.0
== END 2025-06-17 10:08 | disposition home or self-care (01) ==
LOC: HO.HGS 09:50
PROVIDERS: PCP Physician Assistant Medical; Visit Provider Surgery
DX: Z12.11 Encounter for screening for malignant neoplasm of colon (principal)
CPT/HCPCS: 99212

== ENCOUNTER → 2025-06-17 09:49 | Outpatient (BNVA) | payer MEDICARE, OTHER, SELFPAY | PROVIDERS: PCP Physician Assistant Medical; Visit Provider Surgery | DX: Z12.11 Encounter for screening for malignant neoplasm of colon (principal) | CPT/HCPCS: 99212 ==